=== PATIENT | male | born 1945 | race Caucasian/White ===

== ENCOUNTER 2017-11-15 09:08 | Outpatient (CLI) | payer OTHER ==
--- NOTE | 2017-11-15 12:49 | XRAY Report ---
DATE OF SERVICE: 11/15/2017 THREE-VIEW LEFT SHOULDER: 11/15/2017 CLINICAL INDICATION: Pain. FINDINGS: Internal and external rotational views and a scapular Y view of the left shoulder were obtained. There is moderate glenohumeral osteoarthritis. The humeral head appears high riding, suggestive of chronic rotator cuff tear. No acute fracture or dislocation is identified. No foreign body is seen in the soft tissues. IMPRESSION: MODERATE OSTEOARTHRITIS, WITH POSSIBLE CHRONIC ROTATOR CUFF TEAR. TD: 11/15/2017 12:49
== END 2017-11-15 09:09 | disposition home or self-care (01) ==
LOC: DI 09:08
PROVIDERS: ATTEND Family Medicine
DX: M19.012 Primary osteoarthritis, left shoulder (principal)

== ENCOUNTER 2017-12-08 13:15 | Outpatient (CLI) | payer OTHER ==
--- NOTE | 2017-12-08 21:08 | MRI Preliminary Report ---
Exam: MRI SHOULDER LT W/O IMPRESSION: 1. Mild supraspinatus tendinopathy with shallow partial-thickness articular surface tear. 2. Mild infraspinatus tendinopathy with subtle partial-thickness intrasubstance tear. 3. Mild subscapularis tendinopathy with focal deep partial thickness undersurface tear. 4. Moderate biceps tendinopathy with medial subluxation from the groove. 5. Degenerative fraying throughout the labrum with deep partial to full-thickness tear at the posteri or superior aspect. Tearing may extend deep and anterior to the biceps tendon anchor (SLAP tear) . 6. Moderate glenohumeral degenerative change. 7. Moderate acromioclavicular degenerative change. 8. Acromioclavicular osteophytes and lateral downsloping of the acromion may contribute to symptoms o f impingement. [facility] SE[facility] SITE ID: [id number]
--- NOTE | 2017-12-08 22:46 | MRI Report ---
EXAM: LEFT SHOULDER MRI WITHOUT CONTRAST EXAM DATE: 12/08/2017 02:20 PM. CLINICAL HISTORY: Chronic left shoulder pain, unspecified rotator cuff tear/rupture. COMPARISON: Radiographs 11/15/2017. TECHNIQUE: Multiplanar, multisequence T1-weighted and fluid-sensitive sequences of the shoulder witho ut contrast. Other: None. FINDINGS: Acromioclavicular Region: The acromion is type II with mild lateral downsloping. Moderate degenerativ e change at the joint with inferiorly-directed osteophytes resulting in mass-effect on the supraspina tus myotendinous junction. The coracoacromial and coracoclavicular ligaments are intact. Minimal suba cromial/subdeltoid bursal fluid. Glenohumeral Region: No subluxation. Small joint effusion. Diffuse deep partial to full-thickness car tilage loss. Moderate-sized osteophytes at the inferior glenoid and humeral head. The glenohumeral li gaments and joint capsule are unremarkable. Bone Marrow: No fracture, marrow edema or bone lesions. Labrum: Diffuse degenerative fraying of the labrum. Deep partial-thickness tear at the posterior-supe rior aspect. Subtle partial-thickness tearing may extend deep and anterior to the biceps tendon ancho r. Musculature/Rotator Cuff: Mild supraspinatus tendinopathy with shallow partial-thickness articular quintanilla rface tearing at the anterior and central fibers involving a region measuring 1.4 cm in transverse di mension. This involves less than 50% of the tendon thickness. Mild infraspinatus tendinopathy with a minimal partial-thickness intrasubstance tear at the posterior insertion. Teres minor tendon is intact. Mild subscapularis tendinopathy. Focal deep partial-thickness undersurface tear at the mid to superio r fibers. No edema or fatty atrophy. Biceps Tendon: Moderate thickening and hyperintense signal in the intra-articular portion. Medial sub luxation from the groove. Moderate to large amount of fluid in the tendon sheaths. Other: The subcutaneous tissues are unremarkable. IMPRESSION: 1. Mild supraspinatus tendinopathy with a shallow partial-thickness articular surface tear. 2. Mild infraspinatus tendinopathy with a subtle partial-thickness intrasubstance tear. 3. Mild subscapularis tendinopathy with a focal deep partial-thickness undersurface tear. 4. Moderate biceps tendinopathy with medial subluxation from the groove. 5. Degenerative fraying throughout the labrum with a deep partial to full-thickness tear at the poste rior superior aspect. Tearing may extend deep and anterior to the biceps tendon anchor (SLAP tear). 6. Moderate glenohumeral degenerative change. 7. Moderate acromioclavicular degenerative change. 8. Acromioclavicular osteophytes and lateral downsloping of the acromion may contribute to symptoms o f impingement. [facility] SE[facility] Referring Provider Line: [phone] SITE ID: [id number]
== END 2017-12-08 13:16 | disposition home or self-care (01) ==
LOC: DI 13:15
PROVIDERS: ATTEND Family Medicine
DX: M75.102 Unspecified rotator cuff tear or rupture of left shoulder, not specified as traumatic (principal); M19.012 Primary osteoarthritis, left shoulder; M25.712 Osteophyte, left shoulder; S43.492A Other sprain of left shoulder joint, initial encounter; M67.88 Other specified disorders of synovium and tendon, other site; M75.92 Shoulder lesion, unspecified, left shoulder

== ENCOUNTER 2018-01-28 09:02 | Outpatient (CLI) | payer OTHER ==
--- NOTE | 2018-01-28 10:54 | CT Report ---
CT CHEST FOR LUNG CANCER SCREENIN01/28/2018 CLINICAL INDICATION: A 72-year-old asymptomatic patient with [id number] history of smoking, current smoker for screening. TECHNIQUE: Axial CT images of the chest were obtained without intravenous contrast, using low dose screening technique. FINDINGS: The heart and great vessels demonstrate mild atherosclerotic calcification. No hilar or mediastinal lymphadenopathy is present. The lungs are clear. No effusion or pneumothorax is present. Osseous structures demonstrate degenerative changes. Limited evaluation of the upper abdominal structures demonstrates normal adrenal glands. IMPRESSION: NEGATIVE EXAMINATION. RECOMMENDATION: Continue routine annual screening with low dose chest CT in 12 months. LUNG RADS CATEGORY 1-NEGATIVE. CT DOSE REDUCTION STATEMENT In accordance with CT protocol optimization, one or more of the following dose reduction techniques were utilized for this exam: automated exposure control, adjustment of mA and/or KV based on patient size, or use of iterative reconstructive technique. TD: 01/28/2018 10:53
== END 2018-01-28 09:03 | disposition home or self-care (01) ==
LOC: DI 09:02
PROVIDERS: ATTEND Family Medicine
DX: Z12.2 Encounter for screening for malignant neoplasm of respiratory organs (principal); F17.210 Nicotine dependence, cigarettes, uncomplicated

== ENCOUNTER 2018-11-06 10:00 | Outpatient (CLI) | payer OTHER ==
--- NOTE | 2018-11-06 11:34 | XRAY Report ---
Reason: ESOPHAGEAL DYSPHAGIA Procedure Date: 11/06/2018 Accession Number: [id number] / [id number] Procedure: FL - Modified Barium Swallow W/SP CPT Code: FULL RESULT: EXAM: MODIFIED BARIUM SWALLOW EXAM DATE: 11/06/2018 11:03 AM. CLINICAL HISTORY: Esophageal dysphagia. COMPARISON: None. TECHNIQUE: Under the direction of speech pathology, patient swallowed various consistencies of barium under lateral fluoroscopic observation of the neck. Fluoroscopy Time: 0.35 minutes. Number of Images: 1. FINDINGS: Swallowing Mechanism: Normal oral phase and swallowing reflex. Airway Protection: Normal epiglottic motion. No episodes of tracheal penetration or aspiration with all consistencies of barium. Pharynx: Normal. No significant vallecular or piriform sinus contrast pooling. Other: None. IMPRESSION: Normal modified barium swallow. No aspiration identified. [facility]
== END 2018-11-06 10:01 | disposition home or self-care (01) ==
LOC: DI 10:00
PROVIDERS: ATTEND Internal Medicine
DX: R13.19 Other dysphagia (principal)
CPT/HCPCS: 74230

== ENCOUNTER 2019-01-24 13:17 | Outpatient (CLI) | payer OTHER ==
--- NOTE | 2019-01-24 15:20 | XRAY Report ---
Reason: GASTROESOPHAGEAL REFLUX DISEASE W/O ESOPHAGITIS Procedure Date: 01/24/2019 Accession Number: [id number] / [id number] Procedure: FL - Esophogram CPT Code: FULL RESULT: EXAM: BARIUM ESOPHAGRAM EXAM DATE: 01/24/2019 02:15 PM. CLINICAL HISTORY: Gastroesophageal reflux disease without esophagitis. COMPARISONS: MODIFIED SWALLOW 11/06/2018 11:03 AM. TECHNIQUE: Routine double contrast esophagram. Fluoroscopy Time: 2.1 minutes. Number of Images: 34. FINDINGS: Swallowing Mechanism: Normal. No tracheal aspiration or penetration. Esophageal Motility: Disorganized peristaltic stripping wave. Mucosa: Irregular distal mucosa, possibly at least in part due to diffuse esophageal spasm. Gastroesophageal Junction: No fixed stricture is identified. No reflux is identified. Other: Posterior along the cervical esophagus is an indentation with no osseous correlate identified and no definite diverticulum seen. IMPRESSION: Diffuse esophageal spasm and disorganized stripping wave. Given the irregular appearance of mucosa, reflux disease is possible but not demonstrated on today's exam. [facility]
== END 2019-01-24 13:18 | disposition home or self-care (01) ==
LOC: DI 13:17
PROVIDERS: ATTEND Internal Medicine
DX: K22.4 Dyskinesia of esophagus (principal)
CPT/HCPCS: 74220

== ENCOUNTER 2019-09-25 16:58 | Outpatient (CLI) | payer OTHER ==
--- NOTE | 2019-09-27 20:20 | Ultrasound Report ---
Reason: NOCTURIA Procedure Date: 09/25/2019 Accession Number: [id number] / [id number] Procedure: US - Bladder CPT Code: Final Report FULL RESULT: EXAM: PELVIS ULTRASOUND, LIMITED EXAM DATE: 09/25/2019 05:40 PM. CLINICAL HISTORY: NOCTURIA. COMPARISON: None. TECHNIQUE: Real-time scanning was performed with static images obtained. IMPRESSION: 1. Bladder is normal in contour and size, 293 cc prevoid. 2. Moderate postvoid residual, 142 cc. 3. Prostate gland upper normal in size, 36 cc. [facility]
== END 2019-09-25 16:59 | disposition home or self-care (01) ==
LOC: DI 16:58
PROVIDERS: ATTEND Internal Medicine
DX: R35.1 Nocturia (principal)
CPT/HCPCS: 76857

== ENCOUNTER 2019-11-06 10:47 | Outpatient (CLI) | payer OTHER ==
[2019-11-06 11:16] LABS: CREATININE 0.9 mg/dL (0.6-1.2)
[2019-11-06] MEDS ORDERED: IOVERSOL 320 100 ML VIAL IVP ONE ×2 (11:47→12:59)
[2019-11-06] MEDS ORDERED: IOVERSOL 320 50 ML VIAL ONE (11:47)
[2019-11-06] MEDS ORDERED: IOVERSOL 320 50 ML VIAL PO ONE (12:59)
--- NOTE | 2019-11-06 17:04 | CT Report ---
Reason: DYSPHAGIA,EGJ OUTFLOW OBSTRUCTION Procedure Date: 11/06/2019 Accession Number: [id number] / [id number] Procedure: CT - CHEST W CPT Code: Final Report FULL RESULT: EXAM: CT CHEST EXAM DATE: 11/06/2019 12:33 PM. CLINICAL HISTORY: DYSPHAGIA, EGJ OUTFLOW OBSTRUCTION. COMPARISONS: CHEST SCREEN LOW DOSE W/O 01/28/2018 9:33 AM. TECHNIQUE: Routine helical CT imaging was performed through the chest. IV contrast: None. Reconstructions: Coronal and sagittal. In accordance with CT protocol optimization, one or more of the following dose reduction techniques were utilized for this exam: automated exposure control, adjustment of mA and/or KV based on patient size, or use of iterative reconstructive technique. FINDINGS: Lungs/Pleura: Biapical scarring. No nodules, bronchial thickening, consolidation, or edema. Pulmonary vasculature is normal. No pericardial or pleural effusion. No pneumothorax. Mediastinum: Dilated contrast-filled esophagus down to the GE junction. Ascending aortic aneurysm 4.3 cm stable. 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 The heart and great vessels are normal. Bones: DJD spine, shoulders. Visualized Abdomen: Fatty infiltrated liver. Diverticulosis Other: None. IMPRESSION: 1. Dilated contrast filled esophagus down to the GE junction. 2. Ascending aortic aneurysm 4.3 cm 3. Fatty infiltrated liver [facility]
== END 2019-11-06 10:48 | disposition home or self-care (01) ==
LOC: LAB 10:47
PROVIDERS: ATTEND Nurse Practitioner Family
DX: R13.14 Dysphagia, pharyngoesophageal phase (principal); K22.4 Dyskinesia of esophagus; I71.2 Thoracic aortic aneurysm, without rupture; K76.0 Fatty (change of) liver, not elsewhere classified; N40.1 Benign prostatic hyperplasia with lower urinary tract symptoms
CPT/HCPCS: 36415; 71260; 82565; Q9967

== ENCOUNTER 2020-05-26 13:02 | Inpatient (IN) | payer MEDICARE, OTHER ==
[2020-05-26] MEDS ORDERED: HYDROmorphone 1 MG/ML CARPUJECT IM STA (14:44)
--- NOTE | 2020-05-26 14:45 | ED Physician Documentation ---
History of Present Illness - Stated complaint Stated Complaint: RT SIDE PX - Chief complaint Chief Complaint: Ext Problem - History obtained from History obtained from: Patient - History of Present Illness Timing: Prior to arrival - Additonal information Additional information: 74-year-old male presents to the emergency department for evaluation of right low back pain which he attributes to sciatica as well as right knee pain. He reports that 5 days ago he began to feel a sharp pain in his back that radiated down to below the knee. He has had similar in the past. He typically will take hydrocodone for back pain but it has not been effective. He denies saddle anesthesia bowel or bladder movements. However since then he has also began to develop right knee pain and swelling. He reports that he can no longer bear weight on the right knee and he is unable to allow passive flexion or extension of it. He did report to the nurse that he had been kneeling for a long period of time the other day but did not report that history to me. He denies any fevers but does state that he has been vomiting secondary to the pain. This gentleman may have seen his primary care provider who had ordered an outpatient diagnostic procedure of the knee but in conversation with the nurse and the patient it sounds like they were concerned that it would not be covered by therefore they came to the emergency department. pt does take vicodin daily Review of Systems Constitutional: denies: Fever, Chills Throat: denies: Dental pain / toothache, Oral lesions / sores Cardiac: denies: Chest pain / pressure, Palpitations Respiratory: denies: Dyspnea GI: reports: Vomiting. denies: Abdominal Pain, Abdominal Swelling, Nausea : denies: Dysuria, Frequency, Hesitancy, Hematuria Skin: denies: Rash, Lesions Musculoskeletal: reports: Back pain, Joint pain, Joint swelling Neurologic: denies: Generalized weakness, Focal weakness, Numbness PD PAST MEDICAL HISTORY - Past Medical History Past Medical History: Yes Musculoskeletal: Chronic back pain Derm: Other Other Past Medical History: melanoma - Past Surgical History Past Surgical History: Yes Ortho: Other - Allergies Allergies/Adverse Reactions: Allergies Allergy/AdvReac Type Severity Reaction Status Date / Time No Known Drug Allergies Allergy Verified 05/26/20 13:27 - Social History Does the pt smoke?: No Smoking Status: Never smoker Does the pt drink ETOH?: No Does the pt have substance abuse?: No - Immunizations Immunizations are current?: No - POLST Patient has POLST: No PD ED PE EXPANDED - General General: Alert, No acute distress, In Pain - Cardiac Cardiac: Regular Rate, Radial strong equal, Pedal strong equal, Cap refill < 2 sec - Respiratory Respiratory: Clear to ausultation neto. No: Distress, Labored - Abdomen Abdomen: Normal Bowel sounds. No: Tender to palpation - Back Back: Other ( Patient in a seated position. Tenderness in the right lower back near the SI joint. No midline tenderness appreciated. Patient does not allow himself to stand secondary to pain in the right knee. Therefore limited exam of the low back) - Extremities Extremities: Right knee (Right knee is generally swollen and feels warm to the touch. Patient will not flex or extend the knee. It remains at a 45 degree angle. He will not allow passive flexion or extension.) Results - Vitals Vitals: Vital Signs - 24 hr 05/26/20 05/26/20 13:23 16:11 Temperature 37.0 C Heart Rate 104 H 113 H Respiratory 22 18 Rate Blood Pressure 150/105 H 156/83 H O2 Saturation 98 96 Oxygen O2 Source Room air - Labs Labs: Laboratory Tests 05/26/20 05/26/20 05/26/20 14:45 14:55 14:55 WBC 16.5 H RBC 4.68 L Hgb 15.4 Hct 43.4 MCV 92.7 MCH 32.9 H MCHC 35.5 RDW 12.4 Plt Count 159 MPV 9.7 Neut # (Auto) 13.9 H Lymph # (Auto) 1.1 L [place] # (Auto) 1.3 H Eos # (Auto) 0.0 Baso # (Auto) 0.0 Absolute Nucleated RBC 0.00 Nucleated RBC % 0.0 ESR Sodium 134 L Potassium 3.9 Chloride 93 L Carbon Dioxide 26 Anion Gap 15.0 H BUN 19 Creatinine 1.0 Estimated GFR (MDRD) 73 L Glucose 156 H Calcium 9.0 Total Bilirubin 1.4 H AST 20 ALT 34 Alkaline Phosphatase 82 C-Reactive Protein 43.3 H Total Protein 8.1 Albumin 3.9 Globulin 4.2 Albumin/Globulin Ratio 0.9 L Lipase 20 L Urine Color YELLOW Urine Clarity CLEAR Urine pH 5.5 Ur Specific [place] >=1.030 H Urine Protein 100 H Urine Glucose (UA) NEGATIVE Urine Ketones 40 H Urine Occult Blood SMALL H Urine Nitrite NEGATIVE Urine Bilirubin NEGATIVE Urine Urobilinogen 1 (NORMAL) Ur Leukocyte Esterase NEGATIVE Urine RBC 0-5 Urine WBC 0-3 Ur Squamous Epith Cells NONE SEEN Urine Bacteria None Seen Urine Casts 0-2 Hyaline Casts Urine Mucus Moderate Strands Ur Microscopic Review INDICATED Urine Culture Comments NOT INDICATED 05/26/20 14:55 WBC RBC Hgb Hct MCV MCH MCHC RDW Plt Count MPV Neut # (Auto) Lymph # (Auto) [place] # (Auto) Eos # (Auto) Baso # (Auto) Absolute Nucleated RBC Nucleated RBC % ESR 12 Sodium Potassium Chloride Carbon Dioxide Anion Gap BUN Creatinine Estimated GFR (MDRD) Glucose Calcium Total Bilirubin AST ALT Alkaline Phosphatase C-Reactive Protein Total Protein Albumin Globulin Albumin/Globulin Ratio Lipase Urine Color Urine Clarity Urine pH Ur Specific [place] Urine Protein Urine Glucose (UA) Urine Ketones Urine Occult Blood Urine Nitrite Urine Bilirubin Urine Urobilinogen Ur Leukocyte Esterase Urine RBC Urine WBC Ur Squamous Epith Cells Urine Bacteria Urine Casts Urine Mucus Ur Microscopic Review Urine Culture Comments PD MEDICAL DECISION MAKING - ED course Complexity details: reviewed results, d/w patient, d/w family ED course: 74-year-old male presented to the emergency department with 5 days of right low back pain as well as now 4 days of right knee pain and swelling. Patient is unable to bear weight in the right knee. He has micromotion tenderness and allows very little exam of the knee. A CT scan was done and it does show tricompartmental arthritis as well as a mild to moderate knee effusion. CRP and is elevated at 43 as well as leukocytosis of 16,000. My concerns for this knee pain include a septic arthritis versus gout versus an exacerbation of longstanding or Roly's. In order to further differentiate the pain I have offered patient an opportunity for arthrocentesis. However he will not sign the consent for this provider to do the procedure. He insists on being pain-free before the procedure is done. In addition he is afraid that he will not tolerate the procedure. Given my concerns for infection I have asked construction assistant orthopedic Dr. Lucia to come in and evaluate the patient. In addition I have also ordered additional analgesia in the form of Dilaudid and oxycodone. 1744: Patient has been seen by Dr. Lucia. Arthrocentesis of the knee completed. At this time he recommends admitting the patient overnight to the hospitalist service with IV antibiotics. He would like medicine admission and he will continue to consult with plan for likely discharge home tomorrow if better. Departure - Departure Disposition: ED Place in Observation Clinical Impression: Knee effusion, right Right knee pain Qualifiers: Chronicity: acute Qualified Code(s): M25.561 - Pain in right knee
[2020-05-26 14:59] LABS: BASOPHILS % (AUTO) 0.2 %; EOSINOPHILS % (AUTO) 0.1 %; HGB - HEMOGLOBIN 15.4 g/dL (14.0-18.0); LYMPHOCYTES # (AUTO) 1.1 10^3/uL (1.5-3.5); LYMPHOCYTES % (AUTO) 6.7 %; MEAN CORPUSCULAR HEMOGLOBIN 32.9 pg (27.0-31.0); MEAN CORPUSCULAR HGB CONC 35.5 g/dL (32.0-36.0); MEAN CORPUSCULAR VOLUME 92.7 fL (80.0-94.0); MEAN PLATELET VOLUME 9.7 fL (7.4-11.4); MONOCYTES # (AUTO) 1.3 10^3/uL (0.0-1.0); MONOCYTES % (AUTO) 8.1 %; NEUTROPHILS # (AUTO) 13.9 10^3/uL (1.5-6.6); NEUTROPHILS % (AUTO) 84.2 %; PLT - PLATELET COUNT 159 10^3/uL (130-450); RED BLOOD COUNT 4.68 10^6/uL (4.70-6.10); RED CELL DISTRIBUTION WIDTH 12.4 % (12.0-15.0); WHITE BLOOD COUNT 16.5 x10^3/uL (4.8-10.8)
[2020-05-26 15:07] LABS: GLUCOSE, URINE (UA) NEGATIVE (NEGATIVE); KETONES,URINE (UA) 40 mg/dL (NEGATIVE); LEUKOCYTE ESTERASE, URINE NEGATIVE (NEGATIVE); NITRITE,URINE NEGATIVE (NEGATIVE); OCCULT BLOOD,URINE SMALL (NEGATIVE); PH,URINE 5.5 PH (5.0-7.5); PROTEIN,URINE 100 mg/dL (NEGATIVE); UROBILINOGEN,URINE 1 (NORMAL) E.U./dL (NORMAL)
[2020-05-26 15:17] LABS: BILIRUBIN,URINE NEGATIVE (NEGATIVE); CLARITY,URINE CLEAR (CLEAR); ICTOTEST,URINE NEGATIVE
[2020-05-26 15:25] LABS: BACTERIA,URINE None Seen /HPF (None Seen); RBC,URINE 0-5 /HPF (0-5); SQUAMOUS EPITHELIAL CELL,UR NONE SEEN (<= Few)
[2020-05-26 15:26] LABS: CASTS, URINE 0-2 Hyaline Casts /LPF; MUCUS,URINE Moderate Strands
[2020-05-26 15:34] LABS: ALBUMIN 3.9 g/dL (3.2-5.5); ALBUMIN/GLOBULIN RATIO 0.9 (1.0-2.2); BILIRUBIN,TOTAL 1.4 mg/dL (0.2-1.0); CRP - C-REACTIVE PROTEIN 43.3 mg/dL (0-1.0); TOTAL PROTEIN 8.1 g/dL (6.7-8.2)
[2020-05-26] MEDS ORDERED: SODIUM CHLORIDE 0.9% 1,000 ML IV STA (15:41)
--- NOTE | 2020-05-26 16:03 | CT Report ---
PROCEDURE: LOWER EXTREMITY WO - RT INDICATIONS: knee swelling and pain TECHNIQUE: Noncontrast 3 mm axial sections acquired of the right knee, with coronal and sagittal reformats. COMPARISON: None. FINDINGS: Image quality: Excellent. Bones: Examination of right knee shows moderate medial femoral tibial compartment joint space narrow ing and subchondral sclerosis with small marginal osteophyte formation. Mild osteoarthritic changes a re noted in lateral femoral tibial compartment and patellofemoral compartment. No fracture or disloca tion. No suspicious intraosseous lesion. Soft tissues: There is small to moderate amount of joint fluid, no calcified intra-articular loose b nish. Distal quadriceps tendon and patellar tendon are grossly intact. No gross full-thickness ACL or PCL rupture although evaluation is limited due to CT technique. There is suggestion of thickened the medial collateral ligament. IMPRESSION: 1. No acute right knee fracture or dislocation. Mild to moderate tricompartmental osteoarthritis most prominent in medial femoral tibial compartment. 2. Thickened medial collateral ligament suggestive of MCL sprain/partial thickness tear. No definite full-thickness ACL or PCL rupture. Evaluation is limited due to CT technique. 3. Small to moderate amount of joint effusion, no calcified intra-articular loose body. Reviewed by: Calvin Faith MD on 05/26/2020 3:02 PM TICO Approved by: Calvin Faiht MD on 05/26/2020 3:02 PM [id number] Station ID: [id number]
[2020-05-26] MEDS ORDERED: HYDROmorphone 1 MG/ML CARPUJECT IVP STA (16:20)
[2020-05-26] MEDS ORDERED: BUFFERED LIDOCAINE 10 ML SYRINGE SUBQ STA (16:20)
[2020-05-26] MEDS ORDERED: oxyCODONE 5 MG TABLET PO STA (16:42)
[2020-05-26] MEDS ORDERED: cefTRIAXone 2 GM in SODIUM CHLORIDE 0.9% MINIBAG 100 ML IV STA (17:47)
--- NOTE | 2020-05-26 18:02 | CONSULTATION NOTE ---
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 About48 hours ago he started having some pain in his right knee. He states that he has had a similar problem in the past. He denies any history of gout. He has some history of sciatic pain and arthritis in his right knee. He states that he had some chills but presently is not febrile. He now states that he is having significant pain in this knee and is unable to ambulate. An attempt was made to aspirate the knee however he refused and I was called to the emergency department to evaluate. He is amenable to an aspiration. 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 History - Past Medical History Musculoskeletal: reports: Chronic back pain Derm: reports: Other MRSA Hx?: No Other Past Medical History: melanoma - Past Surgical History Ortho: reports: Other - POLST Patient has POLST: No Meds/Allgy - Allergies Allergies/Adverse Reactions: Allergies Allergy/AdvReac Type Severity Reaction Status Date / Time No Known Drug Allergies Allergy Verified 05/26/20 13:27 Exam - Vital Signs Vital Signs: Vital Signs x48h Temp Pulse Resp BP Pulse Ox 05/26/20 16:11 113 H 18 156/83 H 96 05/26/20 13:23 37.0 C 104 H 22 150/105 H 98 - Physical Exam General Appearance: positive: No acute distress. negative: Other (He does not appear in any acute distress nor particularly septic) Eyes Bilateral: positive: PERRL ENT: positive: ENT inspection nml Respiratory: positive: Chest non-tender, No respiratory distress, Breath sounds nml Cardiovascular: positive: Regular rate & rhythm Peripheral Pulses: negative: 2+ Abdomen: positive: Non-tender (Right lower extremity) Skin: negative: Warm (No diaphoresis. His right knee is slightly warm.) Extremities: positive: Joint swelling, Other Neurologic/Psychiatric: positive: Oriented x3, Motor nml, Sensation nml, Mood/af fect nml Conclusion/Plan - Diagnosis Diagnosis: Rule out sepsis right knee. Early diagnosis. - Plan Plan: Under sterile conditions I used ethyl chloride to anesthetize the skin and used 10 cc of 1% Xylocaine with a 27-gauge needle to anesthetize the capsule and subcutaneous tissue. After letting thisSet up I then used an 18-gauge needle and aspirated 20 cc ofMucinous yellow fluid which was not turbid But did appear to have some cellular Contents.He felt immediately better after the aspiration. The aspirate was sent for cell culture aerobic anaerobic Gram stain glucose cell count. He will be started on IV Rocephin tonight. He will have a clinical check in the morning and if improved can be discharged on p.o. antibiotics per laboratory/ culture results.I would suspect that he will do well without having an arthroscopic irrigation and debridement however I did discuss this with him todayAnd he understands that ifHe does not respond to initial IV antibioticsNegation and debridement will be carried out arthroscopically. - Lab Results Fish Bones: 05/26/20 14:55 05/26/20 14:55
[2020-05-26] MEDS ORDERED: SODIUM CHLORIDE FLUSH 0.9% 10 ML SYRINGE IVP PRN (18:18)
[2020-05-26 19:10] LABS: BF CLARITY HAZY; BF COLOR YELLOW; BF SOURCE SYNOVIAL; CC,BF RBC 9000 /mm^3
--- NOTE | 2020-05-26 19:21 | HISTORY & PHYSICAL EXAMINATION ---
Chief Complaint - Chief Complaint Chief Complaint: left knee swelling and pain History of Present Illness - Admitted From Admitted From:: [facility] ED - History Obtained From Records Reviewed: yes History obtained from: patient - History of Present Illness HPI Comment/Other: Patient is a 74-year-old male with history of sciatica and chronic back pain who presented to the ED with complaint of right knee swelling and pain. Symptoms started on Sunday night which was 4 days ago. It got worse Sunday morning and 3 days later it was even more swollen. He went to see his PCP and images were ordered. However because of worsening pain he decided to go to the emergency room. The knee joint was swollen and warm to touch. He denied any recent injury or puncture to the knee. He had been painting in the garage on his knees 4 days ago prior to the onset of his symptoms. He denied any fever but reported night sweats for the past 3 days. Upon arrival to the med/surg unit he was found to have a fever with a temp of 39.2 degree Celsius. He reported previous occurrences of similar episodes twice in the past. He was seen by orthopedics in the ED and had an aspiration of the knee joint done. He was started on Rocephin 2 g IV every 24 hours. He denied chest pain, dyspnea or abdominal pain but reported nausea and vomiting. History - Past Medical History Musculoskeletal: reports: Chronic back pain, Other (Sciatica, Arthritis) Derm: reports: Other MRSA Hx?: No Other Past Medical History: melanoma - Past Surgical History Ortho: reports: Other (bilateral wrist surgery due to an injury while riding a horse) - Family & Social History Family History: Mother: Diabetes, Type 2 Family History Comment/Other: father had gout. He at age 89 Living arrangement: At home Living Situation: With spouse/s.o. Social History Notes: He does not smoke tobacco products or use illicit drugs. He drinks socially. He lives at home with his spouse. 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 - POLST Patient has POLST: No POLST Status: Full Code Meds/Allgy - Allergies Allergies/Adverse Reactions: Allergies Allergy/AdvReac Type Severity Reaction Status Date / Time No Known Drug Allergies Allergy Verified 05/26/20 13:27 Review of Systems - Constitutional Constitutional: reports: Fever, Night sweats - Eyes Eyes: denies: Pain - Ears, Nose & Throat Ears, Nose & Throat: denies: Ear pain - Cardiovascular Cariovascular: denies: Palpitations, Chest pain - Respiratory Respiratory: denies: Cough, Wheezing, SOB at rest, SOB with exertion - Gastrointestinal Gastrointestinal: reports: Nausea, Vomiting, Reflux/heartburn. denies: Abdominal pain, Abdominal distention, Constipation - Genitourinary Genitourinary: denies: Dysuria, Frequency, Urgency, Hematuria - Musculoskeletal Musculoskeletal: reports: Joint pain (right knee), Joint swelling (right knee) - Integumentary Integumentary: reports: Other (knee joint swollen and warm to touch). denies: Rash, Pruritis, Lesions - Neurological Neurological: denies: General weakness, Headache - Psychiatric Psychiatric: denies: Depression, Anxiety - Endocrine Endocrine: denies: Polyuria, Polydypsia - Hematologic/Lymphatic Hematologic/Lymphatic: denies: Anemia, Bruising, Petechiae Prior Level of Functionality: Patient is independent of activities of daily living Exam - Vital Signs Vital Signs: Vital Signs x48h Temp Pulse Resp BP Pulse Ox 05/26/20 16:11 113 H 18 156/83 H 96 05/26/20 13:23 37.0 C 104 H 22 150/105 H 98 - Physical Exam General Appearance: positive: Alert, Moderate distress Eyes Bilateral: positive: PERRL, EOMI ENT: positive: No signs of dehydration Neck: positive: No JVD, Trachea midline Respiratory: positive: Chest non-tender, No respiratory distress, Breath sounds nml. negative: Wheezes, Rales, Rhonchi Cardiovascular: positive: Regular rate & rhythm Abdomen: positive: Non-tender, Nml bowel sounds, No distention Skin: positive: Color nml, No rash, Warm (right knee warm to touch) Extremities: positive: Joint swelling (right knee) Neurologic/Psychiatric: positive: Oriented x3, Mood/affect nml Conclusion/Plan - Problem List (1) Right knee pain Conclusion/Plan: Etiology not yet determined Differential includes gout versus pseudogout versus septic joint. Knee joint was aspirated. Analysis pending. CRP was 43 Patient was given 2 g of Rocephin IV in the ED. We will continue managing pain with Tylenol, oxycodone and all Dilaudid. Toradol 30 mg IV x1 given. Orthopedics following patient. Patient currently n.p.o. in the event that washout is planned tomorrow. Qualifiers: Chronicity: acute Qualified Code(s): M25.561 - Pain in right knee - Lab Results Fish Bones: 05/26/20 14:55 05/26/20 14:55 Core Measures - Anticipated LOS I expect patient to be DC'd or transferred within 96 hours.: Yes - DVT/VTE - Prophylaxis VTE/DVT Device ordered at admit?: Yes
[2020-05-26] MEDS: oxyCODONE 5 MG TABLET PO PRN (20:18)
[2020-05-26] MEDS: ACETAMINOPHEN 325 MG TABLET PO PRN (20:58)
[2020-05-26] MEDS ORDERED: KETOROLAC 30 MG/ML VIAL IVP STA (21:00)
[2020-05-26] MEDS: HYDROmorphone 0.5 MG/0.5 ML SYRINGE IVP PRN ×2 (21:00→23:39)
[2020-05-26] MEDS: SODIUM CHLORIDE 0.9% 1,000 ML IV SCH (21:03)
[2020-05-26] MEDS: SODIUM CHLORIDE FLUSH 0.9% 10 ML SYRINGE IVP SCH (23:39)
[2020-05-27] MEDS: oxyCODONE 5 MG TABLET PO PRN ×5 (01:43→21:23)
[2020-05-27] MEDS: HYDROmorphone 0.5 MG/0.5 ML SYRINGE IVP PRN ×5 (03:53→19:29)
[2020-05-27] MEDS: ACETAMINOPHEN 325 MG TABLET PO PRN ×4 (03:56→21:19)
[2020-05-27 05:32] LABS: BASOPHILS % (AUTO) 0.2 %; EOSINOPHILS % (AUTO) 1.1 %; HGB - HEMOGLOBIN 13.2 g/dL (14.0-18.0); MEAN CORPUSCULAR HEMOGLOBIN 32.5 pg (27.0-31.0); MEAN CORPUSCULAR HGB CONC 34.5 g/dL (32.0-36.0); MEAN CORPUSCULAR VOLUME 94.3 fL (80.0-94.0); MEAN PLATELET VOLUME 10.2 fL (7.4-11.4); MONOCYTES % (AUTO) 8.7 %; NEUTROPHILS % (AUTO) 80.9 %; PLT - PLATELET COUNT 151 10^3/uL (130-450); RED BLOOD COUNT 4.06 10^6/uL (4.70-6.10); RED CELL DISTRIBUTION WIDTH 12.5 % (12.0-15.0); WHITE BLOOD COUNT 13.2 x10^3/uL (4.8-10.8)
[2020-05-27 05:42] LABS: CREATININE 0.9 mg/dL (0.6-1.2)
[2020-05-27 05:46] LABS: ABNORMAL LYMPHS % (MANUAL) 0 %
[2020-05-27] MEDS: SODIUM CHLORIDE 0.9% 1,000 ML IV SCH ×3 (05:49→19:34)
[2020-05-27 06:16] LABS: BAND NEUTROPHILS % (MANUAL) 14 %; DIFFERENTIAL COMMENT MANUAL DIFFERENTIAL; LYMPHOCYTES # (MANUAL) 0.9 10^3/uL (1.5-3.5); LYMPHOCYTES % (MANUAL) 7 %; MONOCYTES # (MANUAL) 0.4 10^3/uL (0.0-1.0); PLATELET ESTIMATE, MANUAL NORMAL (130-450,000) (NORMAL); RBC MORPHOLOGY (MULTIPLE) NORMAL APPEARANCE (NORMAL)
[2020-05-27 06:19] LABS: CALCIUM 8.4 mg/dL (8.5-10.3)
[2020-05-27] MEDS: polyethylene glycoL 3350 17 GM PACKET PO SCH (08:19)
--- NOTE | 2020-05-27 11:00 | PROVIDER PROGRESS NOTE ---
Subjective - Prog Note Date Prog Note Date: 05/27/20 Prog Note Time: 10:58 - Subjective Pt reports feeling: No change (He continues to have issues with pain management despite the fact knee looks much better today) Objective - Vital Signs/Intake & Output Vital Signs: Vital Signs x48h Temp Pulse Pulse Resp BP Pulse Ox 05/27/20 08:00 36.7 C 90 26 H 141/82 H 96 05/27/20 04:53 37.6 C H 109 H 24 93 05/27/20 04:45 37.6 C H 05/27/20 03:58 39.2 C H 109 H 24 145/77 H 93 Intake & Output: Intake & Output 05/24/20 05/25/20 05/26/20 05/27/20 23:59 23:59 23:59 23:59 Intake Total 1661.85 778.817 Output Total 400 550 Balance 1261.85 228.817 - Objective General Appearance: positive: Alert Eyes Bilateral: positive: Conjunctivae nml ENT: positive: No signs of dehydration Neck: positive: Nml inspection Skin: positive: No rash Extremities: positive: Other (His right knee continues to be warm with minimal effusion. ROM guarded 30-60 degrees. No distal swelling, streaking, redness or inguinal nodes on right. No other signs of any joint sepsis potential.) Neurologic/Psychiatric: positive: Mood/affect nml - Lab Results Fish Bones: 05/27/20 04:50 05/27/20 04:50 Other Labs: Lab Results x24hrs 05/27/20 05/27/20 05/26/20 Range/Units 04:50 04:50 17:40 WBC 13.2 H (4.8-10.8) x10^3/uL RBC 4.06 L (4.70-6.10) 10^6/uL Hgb 13.2 L (14.0-18.0) g/dL Hct 38.3 L (42.0-52.0) % MCV 94.3 H (80.0-94.0) fL MCH 32.5 H (27.0-31.0) pg MCHC 34.5 (32.0-36.0) g/dL RDW 12.5 (12.0-15.0) % Plt Count 151 (130-450) 10^3/uL MPV 10.2 (7.4-11.4) fL Neut # (Auto) Not Reportable (1.5-6.6) 10^3/uL Lymph # (Auto) Not Reportable (1.5-3.5) 10^3/uL [place] # (Auto) Not Reportable (0.0-1.0) 10^3/uL Eos # (Auto) Not Reportable (0.0-0.7) 10^3/uL Baso # (Auto) Not Reportable (0.0-0.1) 10^3/uL Absolute Nucleated RBC Not Reportable x10^3/uL Total Counted 100 Band Neuts % (Manual) 14 H (0 - 10) % Abnorm Lymph % (Manual) 0 % Nucleated RBC % Not Reportable /100WBC Neutrophils # (Manual) 11.9 H (1.5-6.6) 10^3/uL Lymphocytes # (Manual) 0.9 L (1.5-3.5) 10^3/uL Monocytes # (Manual) 0.4 (0.0-1.0) 10^3/uL Eosinophils # (Manual) 0.0 (0-0.7) 10^3/uL Basophils # (Manual) 0.0 (0-0.1) 10^3/uL Differential Comment MANUAL DIFFERENTIAL Platelet Estimate NORMAL (130-450,000) (NORMAL) RBC Morph Micro Appear NORMAL APPEARANCE (NORMAL) ESR (0-20) mm/Hr Sodium 134 L (135-145) mmol/L Potassium 3.5 (3.5-5.0) mmol/L Chloride 100 L (101-111) mmol/L Carbon Dioxide 24 (21-32) mmol/L Anion Gap 10.0 (6-13) BUN 16 (6-20) mg/dL Creatinine 0.9 (0.6-1.2) mg/dL Estimated GFR (MDRD) 83 L (>89) Glucose 153 H (70-100) mg/dL Calcium 8.4 L (8.5-10.3) mg/dL Total Bilirubin (0.2-1.0) mg/dL AST (10-42) IU/L ALT (10-60) IU/L Alkaline Phosphatase (42-121) IU/L C-Reactive Protein (0-1.0) mg/dL Total Protein (6.7-8.2) g/dL Albumin (3.2-5.5) g/dL Globulin (2.1-4.2) g/dL Albumin/Globulin Ratio (1.0-2.2) Lipase (22-51) U/L Urine Color Urine Clarity (CLEAR) Urine pH (5.0-7.5) PH Ur Specific [place] (1.002-1.030) Urine Protein (NEGATIVE) mg/dL Urine Glucose (UA) (NEGATIVE) mg/dL Urine Ketones (NEGATIVE) mg/dL Urine Occult Blood (NEGATIVE) Urine Nitrite (NEGATIVE) Urine Bilirubin (NEGATIVE) Urine Urobilinogen (NORMAL) E.U./dL Ur Leukocyte Esterase (NEGATIVE) Urine RBC (0-5) /HPF Urine WBC (0-3) /HPF Ur Squamous Epith Cells (<= Few) Urine Bacteria (None Seen) /HPF Urine Casts /LPF Urine Mucus Ur Microscopic Review Urine Culture Comments Fluid Source Fluid Color Fluid Clarity Fluid WBC /mm^3 Fluid RBC /mm^3 Fluid Neutrophils % % Fluid Lymphocytes % % Fld Mesothelial Cell % Fluid Crystals NONE SEEN (N) 05/26/20 05/26/20 05/26/20 Range/Units 17:40 14:55 14:55 WBC (4.8-10.8) x10^3/uL RBC (4.70-6.10) 10^6/uL Hgb (14.0-18.0) g/dL Hct (42.0-52.0) % MCV (80.0-94.0) fL MCH (27.0-31.0) pg MCHC (32.0-36.0) g/dL RDW (12.0-15.0) % Plt Count (130-450) 10^3/uL MPV (7.4-11.4) fL Neut # (Auto) (1.5-6.6) 10^3/uL Lymph # (Auto) (1.5-3.5) 10^3/uL [place] # (Auto) (0.0-1.0) 10^3/uL Eos # (Auto) (0.0-0.7) 10^3/uL Baso # (Auto) (0.0-0.1) 10^3/uL Absolute Nucleated RBC x10^3/uL Total Counted Band Neuts % (Manual) (0 - 10) % Abnorm Lymph % (Manual) % Nucleated RBC % /100WBC Neutrophils # (Manual) (1.5-6.6) 10^3/uL Lymphocytes # (Manual) (1.5-3.5) 10^3/uL Monocytes # (Manual) (0.0-1.0) 10^3/uL Eosinophils # (Manual) (0-0.7) 10^3/uL Basophils # (Manual) (0-0.1) 10^3/uL Differential Comment Platelet Estimate (NORMAL) RBC Morph Micro Appear (NORMAL) ESR 12 (0-20) mm/Hr Sodium 134 L (135-145) mmol/L Potassium 3.9 (3.5-5.0) mmol/L Chloride 93 L (101-111) mmol/L Carbon Dioxide 26 (21-32) mmol/L Anion Gap 15.0 H (6-13) BUN 19 (6-20) mg/dL Creatinine 1.0 (0.6-1.2) mg/dL Estimated GFR (MDRD) 73 L (>89) Glucose 156 H (70-100) mg/dL Calcium 9.0 (8.5-10.3) mg/dL Total Bilirubin 1.4 H (0.2-1.0) mg/dL AST 20 (10-42) IU/L ALT 34 (10-60) IU/L Alkaline Phosphatase 82 (42-121) IU/L C-Reactive Protein 43.3 H (0-1.0) mg/dL Total Protein 8.1 (6.7-8.2) g/dL Albumin 3.9 (3.2-5.5) g/dL Globulin 4.2 (2.1-4.2) g/dL Albumin/Globulin Ratio 0.9 L (1.0-2.2) Lipase 20 L (22-51) U/L Urine Color Urine Clarity (CLEAR) Urine pH (5.0-7.5) PH Ur Specific [place] (1.002-1.030) Urine Protein (NEGATIVE) mg/dL Urine Glucose (UA) (NEGATIVE) mg/dL Urine Ketones (NEGATIVE) mg/dL Urine Occult Blood (NEGATIVE) Urine Nitrite (NEGATIVE) Urine Bilirubin (NEGATIVE) Urine Urobilinogen (NORMAL) E.U./dL Ur Leukocyte Esterase (NEGATIVE) Urine RBC (0-5) /HPF Urine WBC (0-3) /HPF Ur Squamous Epith Cells (<= Few) Urine Bacteria (None Seen) /HPF Urine Casts /LPF Urine Mucus Ur Microscopic Review Urine Culture Comments Fluid Source SYNOVIAL Fluid Color YELLOW Fluid Clarity HAZY Fluid WBC 29512 /mm^3 Fluid RBC 9000 /mm^3 Fluid Neutrophils % 99.0 % Fluid Lymphocytes % 1.0 % Fld Mesothelial Cell % Not Reportable Fluid Crystals (N) 05/26/20 05/26/20 Range/Units 14:55 14:45 WBC 16.5 H (4.8-10.8) x10^3/uL RBC 4.68 L (4.70-6.10) 10^6/uL Hgb 15.4 (14.0-18.0) g/dL Hct 43.4 (42.0-52.0) % MCV 92.7 (80.0-94.0) fL MCH 32.9 H (27.0-31.0) pg MCHC 35.5 (32.0-36.0) g/dL RDW 12.4 (12.0-15.0) % Plt Count 159 (130-450) 10^3/uL MPV 9.7 (7.4-11.4) fL Neut # (Auto) 13.9 H (1.5-6.6) 10^3/uL Lymph # (Auto) 1.1 L (1.5-3.5) 10^3/uL [place] # (Auto) 1.3 H (0.0-1.0) 10^3/uL Eos # (Auto) 0.0 (0.0-0.7) 10^3/uL Baso # (Auto) 0.0 (0.0-0.1) 10^3/uL Absolute Nucleated RBC 0.00 x10^3/uL Total Counted Band Neuts % (Manual) (0 - 10) % Abnorm Lymph % (Manual) % Nucleated RBC % 0.0 /100WBC Neutrophils # (Manual) (1.5-6.6) 10^3/uL Lymphocytes # (Manual) (1.5-3.5) 10^3/uL Monocytes # (Manual) (0.0-1.0) 10^3/uL Eosinophils # (Manual) (0-0.7) 10^3/uL Basophils # (Manual) (0-0.1) 10^3/uL Differential Comment Platelet Estimate (NORMAL) RBC Morph Micro Appear (NORMAL) ESR (0-20) mm/Hr Sodium (135-145) mmol/L Potassium (3.5-5.0) mmol/L Chloride (101-111) mmol/L Carbon Dioxide (21-32) mmol/L Anion Gap (6-13) BUN (6-20) mg/dL Creatinine (0.6-1.2) mg/dL Estimated GFR (MDRD) (>89) Glucose (70-100) mg/dL Calcium (8.5-10.3) mg/dL Total Bilirubin (0.2-1.0) mg/dL AST (10-42) IU/L ALT (10-60) IU/L Alkaline Phosphatase (42-121) IU/L C-Reactive Protein (0-1.0) mg/dL Total Protein (6.7-8.2) g/dL Albumin (3.2-5.5) g/dL Globulin (2.1-4.2) g/dL Albumin/Globulin Ratio (1.0-2.2) Lipase (22-51) U/L Urine Color YELLOW Urine Clarity CLEAR (CLEAR) Urine pH 5.5 (5.0-7.5) PH Ur Specific [place] >=1.030 H (1.002-1.030) Urine Protein 100 H (NEGATIVE) mg/dL Urine Glucose (UA) NEGATIVE (NEGATIVE) mg/dL Urine Ketones 40 H (NEGATIVE) mg/dL Urine Occult Blood SMALL H (NEGATIVE) Urine Nitrite NEGATIVE (NEGATIVE) Urine Bilirubin NEGATIVE (NEGATIVE) Urine Urobilinogen 1 (NORMAL) (NORMAL) E.U./dL Ur Leukocyte Esterase NEGATIVE (NEGATIVE) Urine RBC 0-5 (0-5) /HPF Urine WBC 0-3 (0-3) /HPF Ur Squamous Epith Cells NONE SEEN (<= Few) Urine Bacteria None Seen (None Seen) /HPF Urine Casts 0-2 Hyaline Casts /LPF Urine Mucus Moderate Strands Ur Microscopic Review INDICATED Urine Culture Comments NOT INDICATED Fluid Source Fluid Color Fluid Clarity Fluid WBC /mm^3 Fluid RBC /mm^3 Fluid Neutrophils % % Fluid Lymphocytes % % Fld Mesothelial Cell % Fluid Crystals (N) Sepsis Event Note (H) - Evaluation Possible source of Sepsis: positive: Bone/Joint - Sepsis Criteria Sepsis Criteria: Recorded Temperature greater than 38.3C or Less than 36C, WBC count greater than 10% bands Assessment/Plan - Problem List (1) Knee effusion, right Impression: Presently he appears slightly better after one dose of Rocephin. WBC count decreased. Gram stain of knee aspirate no organisms and wbc 10,000. Cultures pending. Due to pain intolerance would like to see how 24 hours of IV antibiotics effects CRP and clinical picture. With minimal effusion today doubt that washout arthroscopically will make much difference in overal clinical course but will make NPO with potential washout tomorrow. Discussed in detail with patient and he consents to possible surgery tomorrow if not clinically better.
[2020-05-27] MEDS: cefTRIAXone 2 GM in SODIUM CHLORIDE 0.9% MINIBAG 100 ML IV SCH (11:33)
--- NOTE | 2020-05-27 11:35 | PHARMACY PROGRESS NOTE ---
- Best Possible Medication History Admit Date and Time: 05/26/201817 Processed by: Pharmacy Medication History completed: Yes Patient Interview: Completed Secondary Source(s): Pharmacy records (PATIENT INTERVIEWED BY RAYO CROOKS. PATIENT CONFIRMS HE TAKES NORCO AT HOME REGULARLY. UNABLE TO REACH OR FOR COMPLETE LIST ), Insurance records As the person ultimately responsible for medication therapy, providers are able to order a medication from an existing home medication list in [facility] via the "Reconcile Routine" prior to Confirmation of that medication by office support. Such practice is discouraged except when the physician, in their clinical judgment, deems that a medical need exists for a medication without regard to previous use.
[2020-05-27] MEDS: SODIUM CHLORIDE FLUSH 0.9% 10 ML SYRINGE IVP SCH ×2 (14:42→17:22)
--- NOTE | 2020-05-27 15:43 | PROVIDER PROGRESS NOTE ---
Subjective - Prog Note Date Prog Note Date: 05/27/20 Prog Note Time: 15:41 (seen earlier today) - Subjective Subjective: the knee briefly felt better right after tap, but still painful 5pm; I dont hurt right now, but I'm afraid to move Patient reports he forgot to tell hospitalist on H/P that he has a swallowing issue, had EGD ~ 1 yr ago, and ? manometry. They thought he might have a strictures. He denies eosinophil esophagitis or [place] diverticulum . Sometimes "even milk gets stuck" and it all just comes out." Is supposed to have follow up. Never aspoirated , no pneumonia hx, no weight loss Current Medications - Current Medications Current Medications: Active Medications Generic Name Dose Route Start Last Admin Trade Name Freq PRN Reason Stop Dose Admin Acetaminophen 650 mg 05/26/20 20:35 05/27/20 15:02 Tylenol PO 650 mg Q6HR PRN Administration Pain or Fever > 38C (100.4F) Hydromorphone HCl 0.5 mg 05/26/20 20:34 05/27/20 15:02 Dilaudid Inj Syringe IVP 0.5 mg Q2H PRN Administration PAIN Sodium Chloride 1,000 mls @ 83 mls/hr 05/26/20 19:00 05/27/20 08:23 Normal Saline 0.9% IV 83 mls/hr .Q12H3M JUSTIN Administration Ceftriaxone Sodium 2 gm/ 100 mls @ 200 mls/hr 05/27/20 11:30 05/27/20 12:03 Sodium Chloride IV Infused Q24H JUSTIN Infusion Oxycodone HCl 5 mg 05/26/20 18:29 05/27/20 17:18 Roxicodone PO 5 mg Q4H PRN Administration PAIN Polyethylene Glycol 17 gm 05/27/20 09:00 05/27/20 08:19 Miralax PO 17 gm DAILY JUSTIN Administration Sodium Chloride 10 ml 05/26/20 18:18 Normal Saline Flush 0.9% IVP PRN PRN NEEDED PER PROVIDER ORDERS Sodium Chloride 10 ml 05/27/20 01:00 05/27/20 17:22 Normal Saline Flush 0.9% IVP Not Given 0100,0900,1700 JUSTIN HYDROcod/ACETAM 5/325 [Dent 5/325] 2 tab PO Q4HR 05/27/20 Objective - Vital Signs/Intake & Output Reviewed Vital Signs: Yes Vital Signs: Vital Signs x48h Temp Pulse Resp BP Pulse Ox 05/27/20 08:00 36.7 C 90 26 H 141/82 H 96 Intake & Output: Intake & Output 05/24/20 05/25/20 05/26/20 05/27/20 23:59 23:59 23:59 23:59 Intake Total 1661.85 1078.817 Output Total 400 1800 Balance 1261.85 -721.183 - Objective General Appearance: positive: No acute distress, Other (Pleasant alert, awake responsive, normal affect, looks comfortable,) Eyes Bilateral: positive: Normal inspection, EOMI Respiratory: positive: Chest non-tender, No respiratory distress, Breath sounds nml Cardiovascular: positive: Regular rate & rhythm, No murmur Abdomen: positive: Nml bowel sounds, No distention. negative: Tenderness Skin: positive: Warm, Dry Extremities: positive: Other (Right knee betadine stained, no ecchymosis, modest generalized swelling, warm to touch). negative: Pedal edema Neurologic/Psychiatric: positive: Oriented x3, Mood/affect nml - Lab Results Fish Bones: 05/27/20 04:50 05/27/20 04:50 Other Labs: Lab Results x24hrs 05/27/20 05/27/20 05/27/20 Range/Units 04:50 04:50 04:50 WBC 13.2 H (4.8-10.8) x10^3/uL RBC 4.06 L (4.70-6.10) 10^6/uL Hgb 13.2 L (14.0-18.0) g/dL Hct 38.3 L (42.0-52.0) % MCV 94.3 H (80.0-94.0) fL MCH 32.5 H (27.0-31.0) pg MCHC 34.5 (32.0-36.0) g/dL RDW 12.5 (12.0-15.0) % Plt Count 151 (130-450) 10^3/uL MPV 10.2 (7.4-11.4) fL Neut # (Auto) Not Reportable Lymph # (Auto) Not Reportable [place] # (Auto) Not Reportable Eos # (Auto) Not Reportable Baso # (Auto) Not Reportable Absolute Nucleated RBC Not Reportable Total Counted 100 Band Neuts % (Manual) 14 H (0 - 10) % Abnorm Lymph % (Manual) 0 % Nucleated RBC % Not Reportable Neutrophils # (Manual) 11.9 H (1.5-6.6) 10^3/uL Lymphocytes # (Manual) 0.9 L (1.5-3.5) 10^3/uL Monocytes # (Manual) 0.4 (0.0-1.0) 10^3/uL Eosinophils # (Manual) 0.0 (0-0.7) 10^3/uL Basophils # (Manual) 0.0 (0-0.1) 10^3/uL Differential Comment MANUAL DIFFERENTIAL Platelet Estimate NORMAL (130-450,000) (NORMAL) RBC Morph Micro Appear NORMAL APPEARANCE (NORMAL) ESR (0-20) mm/Hr Sodium 134 L (135-145) mmol/L Potassium 3.5 (3.5-5.0) mmol/L Chloride 100 L (101-111) mmol/L Carbon Dioxide 24 (21-32) mmol/L Anion Gap 10.0 (6-13) BUN 16 (6-20) mg/dL Creatinine 0.9 (0.6-1.2) mg/dL Estimated GFR (MDRD) 83 L (>89) Glucose 153 H (70-100) mg/dL Calcium 8.4 L (8.5-10.3) mg/dL C-Reactive Protein 38.5 H (0-1.0) mg/dL Fluid Source Fluid Color Fluid Clarity Fluid WBC /mm^3 Fluid RBC /mm^3 Fluid Neutrophils % % Fluid Lymphocytes % % Fld Mesothelial Cell % Fluid Crystals (N) 05/26/20 05/26/20 05/26/20 Range/Units 17:40 17:40 14:55 WBC (4.8-10.8) x10^3/uL RBC (4.70-6.10) 10^6/uL Hgb (14.0-18.0) g/dL Hct (42.0-52.0) % MCV (80.0-94.0) fL MCH (27.0-31.0) pg MCHC (32.0-36.0) g/dL RDW (12.0-15.0) % Plt Count (130-450) 10^3/uL MPV (7.4-11.4) fL Neut # (Auto) Lymph # (Auto) [place] # (Auto) Eos # (Auto) Baso # (Auto) Absolute Nucleated RBC Total Counted Band Neuts % (Manual) (0 - 10) % Abnorm Lymph % (Manual) % Nucleated RBC % Neutrophils # (Manual) (1.5-6.6) 10^3/uL Lymphocytes # (Manual) (1.5-3.5) 10^3/uL Monocytes # (Manual) (0.0-1.0) 10^3/uL Eosinophils # (Manual) (0-0.7) 10^3/uL Basophils # (Manual) (0-0.1) 10^3/uL Differential Comment Platelet Estimate (NORMAL) RBC Morph Micro Appear (NORMAL) ESR 12 (0-20) mm/Hr Sodium (135-145) mmol/L Potassium (3.5-5.0) mmol/L Chloride (101-111) mmol/L Carbon Dioxide (21-32) mmol/L Anion Gap (6-13) BUN (6-20) mg/dL Creatinine (0.6-1.2) mg/dL Estimated GFR (MDRD) (>89) Glucose (70-100) mg/dL Calcium (8.5-10.3) mg/dL C-Reactive Protein (0-1.0) mg/dL Fluid Source SYNOVIAL Fluid Color YELLOW Fluid Clarity HAZY Fluid WBC 89202 /mm^3 Fluid RBC 9000 /mm^3 Fluid Neutrophils % 99.0 % Fluid Lymphocytes % 1.0 % Fld Mesothelial Cell % Not Reportable Fluid Crystals NONE SEEN (N) Sepsis Event Note (H) - Evaluation Possible source of Sepsis: positive: Bone/Joint - Sepsis Criteria Sepsis Criteria: Recorded Temperature greater than 38.3C or Less than 36C, WBC count greater than 10% bands Assessment/Plan - Problem List (1) Right knee pain Impression: (1) Right knee pain Conclusion/Plan: Primary management by Orthopedic surgery Intial joint aspirate with ~ 11K WBC, nonturbid, Gram stain no organisms, Leukocytosis slightly improved Cultures still pending Objectively , per orthopedic surgeon, Knee looks less inflamed today (I did not see 05/26) Per , continuing Rocephin, reevaluating joint and CRP tomorrow (43 on admit) and will consider arthroscopic washout . NPO overnight in case no cl inical improvement overnight Although painful with movement, today received ~ 10 am 5 mg oxycodone, and 0.5 mg IV dilaudid once this afternoon, comfortable at rest No medical problems Possible esophageal stricture, tolerating PO, Outpatient follow up Qualifiers: Chronicity: acute Qualified Code(s): M25.561 - Pain in right knee
[2020-05-28] MEDS: HYDROmorphone 0.5 MG/0.5 ML SYRINGE IVP PRN ×5 (00:54→12:16)
[2020-05-28] MEDS: SODIUM CHLORIDE FLUSH 0.9% 10 ML SYRINGE IVP SCH ×3 (01:22→17:22)
[2020-05-28 05:33] LABS: BASOPHILS % (AUTO) 0.3 %; EOSINOPHILS # (AUTO) 0.3 10^3/uL (0.0-0.7); EOSINOPHILS % (AUTO) 1.7 %; HGB - HEMOGLOBIN 12.6 g/dL (14.0-18.0); LYMPHOCYTES # (AUTO) 1.2 10^3/uL (1.5-3.5); LYMPHOCYTES % (AUTO) 7.8 %; MEAN CORPUSCULAR HEMOGLOBIN 32.6 pg (27.0-31.0); MEAN CORPUSCULAR HGB CONC 34.6 g/dL (32.0-36.0); MEAN CORPUSCULAR VOLUME 94.1 fL (80.0-94.0); MEAN PLATELET VOLUME 9.7 fL (7.4-11.4); MONOCYTES # (AUTO) 1.4 10^3/uL (0.0-1.0); MONOCYTES % (AUTO) 8.7 %; NEUTROPHILS # (AUTO) 12.5 10^3/uL (1.5-6.6); NEUTROPHILS % (AUTO) 80.2 %; PLT - PLATELET COUNT 159 10^3/uL (130-450); RED BLOOD COUNT 3.87 10^6/uL (4.70-6.10); RED CELL DISTRIBUTION WIDTH 12.2 % (12.0-15.0); WHITE BLOOD COUNT 15.6 x10^3/uL (4.8-10.8)
[2020-05-28 05:43] LABS: CALCIUM 8.1 mg/dL (8.5-10.3); CREATININE 0.9 mg/dL (0.6-1.2)
[2020-05-28 05:52] LABS: PLATELET MORPHOLOGY NORMAL APPEARANCE (NORMAL); RBC MORPHOLOGY (MULTIPLE) NORMAL APPEARANCE (NORMAL)
[2020-05-28 05:53] LABS: PLATELET ESTIMATE, MANUAL NORMAL (130-450,000) (NORMAL)
[2020-05-28] MEDS: SODIUM CHLORIDE 0.9% 1,000 ML IV SCH ×2 (07:59→23:31)
[2020-05-28] MEDS: ACETAMINOPHEN 325 MG TABLET PO PRN (07:59)
[2020-05-28] MEDS: polyethylene glycoL 3350 17 GM PACKET PO SCH (07:59)
[2020-05-28] MEDS: oxyCODONE 5 MG TABLET PO PRN ×2 (08:00→22:13)
--- NOTE | 2020-05-28 08:10 | PROVIDER PROGRESS NOTE ---
Subjective - Prog Note Date Prog Note Date: 05/28/20 - Subjective Pt reports feeling: No change (Cultures from right knee are growing 2+ staph at 48 hours. Despite negative gram stain. Discussed with patient yesterday that positive cultures would necessitate a washout Irrigation /debridement arthroscopically and continued antibiotics pending sensitivity. He is scheduled for Arthroscopic I&D.) Objective - Vital Signs/Intake & Output Vital Signs: Vital Signs x48h Temp Pulse Resp BP BP Pulse Ox 05/28/20 03:00 37.3 C 93 26 H 120/61 96 05/28/20 01:27 38 C H 05/28/20 00:46 37.7 C H 93 16 142/69 H 97 Intake & Output: Intake & Output 05/25/20 05/26/20 05/27/20 05/28/20 23:59 23:59 23:59 23:59 Intake Total 1661.85 2644.434 767.6 Output Total 400 3050 1200 Balance 1261.85 -405.566 -432.4 - Lab Results Fish Bones: 05/28/20 04:50 05/28/20 04:50 Other Labs: Lab Results x24hrs 05/28/20 05/28/20 05/27/20 Range/Units 04:50 04:50 04:50 WBC 15.6 H (4.8-10.8) x10^3/uL RBC 3.87 L (4.70-6.10) 10^6/uL Hgb 12.6 L (14.0-18.0) g/dL Hct 36.4 L (42.0-52.0) % MCV 94.1 H (80.0-94.0) fL MCH 32.6 H (27.0-31.0) pg MCHC 34.6 (32.0-36.0) g/dL RDW 12.2 (12.0-15.0) % Plt Count 159 (130-450) 10^3/uL MPV 9.7 (7.4-11.4) fL Neut # (Auto) 12.5 H (1.5-6.6) 10^3/uL Lymph # (Auto) 1.2 L (1.5-3.5) 10^3/uL [place] # (Auto) 1.4 H (0.0-1.0) 10^3/uL Eos # (Auto) 0.3 (0.0-0.7) 10^3/uL Baso # (Auto) 0.0 (0.0-0.1) 10^3/uL Absolute Nucleated RBC 0.00 x10^3/uL Nucleated RBC % 0.0 /100WBC Manual Slide Review Indicated Platelet Estimate NORMAL (130-450,000) (NORMAL) Platelet Morphology NORMAL APPEARANCE (NORMAL) RBC Morph Micro Appear NORMAL APPEARANCE (NORMAL) Sodium 133 L (135-145) mmol/L Potassium 3.5 (3.5-5.0) mmol/L Chloride 97 L (101-111) mmol/L Carbon Dioxide 23 (21-32) mmol/L Anion Gap 13.0 (6-13) BUN 14 (6-20) mg/dL Creatinine 0.9 (0.6-1.2) mg/dL Estimated GFR (MDRD) 83 L (>89) Glucose 123 H (70-100) mg/dL Calcium 8.1 L (8.5-10.3) mg/dL C-Reactive Protein 38.5 H (0-1.0) mg/dL Sepsis Event Note (H) - Evaluation Possible source of Sepsis: positive: Bone/Joint - Sepsis Criteria Sepsis Criteria: Recorded Temperature greater than 38.3C or Less than 36C, WBC count greater than 10% bands Assessment/Plan - Problem List (1) Knee effusion, right Impression: To operating room today for I&D right knee. Risks and benefits including the need for repeat I&D and prolonged antibiotic treatment discussed with patient in detail and consent signed.
[2020-05-28] MEDS: cefTRIAXone 2 GM in SODIUM CHLORIDE 0.9% MINIBAG 100 ML IV SCH (08:19)
--- NOTE | 2020-05-28 08:50 | ANESTHESIA ---
Pre-Anesthesia VS, & Labs - Diagnosis Diagnosis Rule out sepsis right knee. Early diagnosis. - Procedure R knee I&D Vital Signs: Temp Pulse Resp BP Pulse Ox 37.3 C 93 26 H 120/61 96 05/28/20 03:00 05/28/20 03:00 05/28/20 03:00 05/28/20 03:00 05/28/20 03:00 Height 6 ft 4 in Weight (kg) 104.32 kg Body Mass Index 28.0 - NPO >8 hours - Lab Results Current Lab Results: Laboratory Tests 05/28/20 04:50: Sodium 133 L, Potassium 3.5, Chloride 97 L, Carbon Dioxide 23, Anion Gap 13.0, BUN 14, Creatinine 0.9, Estimated GFR (MDRD) 83 L, Glucose 123 H , Calcium 8.1 L 05/28/20 04:50: WBC 15.6 H, RBC 3.87 L, Hgb 12.6 L, Hct 36.4 L, MCV 94.1 H, MCH 32.6 H, MCHC 34.6, RDW 12.2, Plt Count 159, MPV 9.7, Neut # (Auto) 12.5 H, Lymph # (Auto) 1.2 L, Clark # (Auto) 1.4 H, Eos # (Auto) 0.3, Baso # (Auto) 0.0, Absolute Nucleated RBC 0.00, Nucleated RBC % 0.0, Manual Slide Review Indicated, Platelet Estimate NORMAL (130-450,000), Platelet Morphology NORMAL APPEARANCE, RBC Morph Micro Appear NORMAL APPEARANCE 05/27/20 04:50: C-Reactive Protein 38.5 H 05/27/20 04:50: Sodium 134 L, Potassium 3.5, Chloride 100 L, Carbon Dioxide 24, Anion Gap 10.0, BUN 16, Creatinine 0.9, Estimated GFR (MDRD) 83 L, Glucose 153 H , Calcium 8.4 L 05/27/20 04:50: WBC 13.2 H, RBC 4.06 L, Hgb 13.2 L, Hct 38.3 L, MCV 94.3 H, MCH 32.5 H, MCHC 34.5, RDW 12.5, Plt Count 151, MPV 10.2, Neut # (Auto) Not Reportable, Lymph # (Auto) Not Reportable, Clark # (Auto) Not Reportable, Eos # (Auto) Not Reportable, Baso # (Auto) Not Reportable, Absolute Nucleated RBC Not Reportable, Total Counted 100, Band Neuts % (Manual) 14 H, Abnorm Lymph % (Manual) 0, Nucleated RBC % Not Reportable, Neutrophils # (Manual) 11.9 H, L ymphocytes # (Manual) 0.9 L, Monocytes # (Manual) 0.4, Eosinophils # (Manual) 0.0, Basophils # (Manual) 0.0, Differential Comment MANUAL DIFFERENTIAL, Platelet Estimate NORMAL (130-450,000), RBC Morph Micro Appear NORMAL APPEARANCE 05/26/20 14:55: ESR 12 05/26/20 14:55: Sodium 134 L, Potassium 3.9, Chloride 93 L, Carbon Dioxide 26, Anion Gap 15.0 H, BUN 19, Creatinine 1.0, Estimated GFR (MDRD) 73 L, Glucose 156 H, Calcium 9.0, Total Bilirubin 1.4 H, AST 20, ALT 34, Alkaline Phosphatase 82, C-Reactive Protein 43.3 H, Total Protein 8.1, Albumin 3.9, Globulin 4.2, Albumin /Globulin Ratio 0.9 L, Lipase 20 L 05/26/20 14:55: WBC 16.5 H, RBC 4.68 L, Hgb 15.4, Hct 43.4, MCV 92.7, MCH 32.9 H , MCHC 35.5, RDW 12.4, Plt Count 159, MPV 9.7, Neut # (Auto) 13.9 H, Lymph # (Auto) 1.1 L, Clark # (Auto) 1.3 H, Eos # (Auto) 0.0, Baso # (Auto) 0.0, Absolute Nucleated RBC 0.00, Nucleated RBC % 0.0 Fish Bones: 05/28/20 04:50 05/28/20 04:50 Home Medications and Allergies Home Medications: Ambulatory Orders HYDROcod/ACETAM 5/325 [[place] 5/325] 2 tab PO Q4HR 05/27/20 Active Medications Acetaminophen (Tylenol) 650 mg PO Q6HR PRN PRN Reason: Pain or Fever > 38C (100.4F) Last Admin: 05/28/20 07:59 Dose: 650 mg Documented by: Hydromorphone HCl (Dilaudid Inj Syringe) 0.5 mg IVP Q2H PRN PRN Reason: PAIN Last Admin: 05/28/20 08:00 Dose: 0.5 mg Documented by: Sodium Chloride (Normal Saline 0.9%) 1,000 mls @ 83 mls/hr IV .Q12H3M [facility] Last Admin: 05/28/20 07:59 Dose: 83 mls/hr Documented by: Ceftriaxone Sodium 2 gm/ (Sodium Chloride) 100 mls @ 200 mls/hr IV Q24H [facility] Last Admin: 05/28/20 08:19 Dose: 200 mls/hr Documented by: Oxycodone HCl (Roxicodone) 5 mg PO Q4H PRN PRN Reason: PAIN Last Admin: 05/28/20 08:00 Dose: 5 mg Documented by: Polyethylene Glycol (Miralax) 17 gm PO DAILY [facility] Last Admin: 05/28/20 07:59 Dose: Not Given Documented by: Sodium Chloride (Normal Saline Flush 0.9%) 10 ml IVP PRN PRN PRN Reason: NEEDED PER PROVIDER ORDERS Sodium Chloride (Normal Saline Flush 0.9%) 10 ml IVP 0100,0900,1700 [facility] Last Admin: 05/28/20 07:59 Dose: Not Given Documented by: HYDROcod/ACETAM 5/325 [[place] 5/325] 2 tab PO Q4HR 05/27/20 Allergies/Adverse Reactions: Allergies Allergy/AdvReac Type Severity Reaction Status Date / Time No Known Drug Allergies Allergy Verified 05/26/20 13:27 Anes History & Medical History - Anesthetic History Anesthesia Complications: reports: No previous complications Family history of Anesthesia Complications: Denies Family history of Malignant Hyperthermia: Denies - Medical History Cardiovascular: reports: None Pulmonary: reports: None Neuro: reports: None Musculoskeletal: reports: Chronic back pain, Other (Sciatica, Arthritis) Skin: reports: Other Smoking Status: Never smoker Psychosocial: reports: No issues indicated Other Past Medical History: melanoma - Surgical History Orthopedic: Other (bilateral wrist surgery due to an injury while riding a horse) Exam General: Alert, Oriented x3 Dental: WNL Mouth Opening: Greater than 4 Fingerbreadths Neck Mobility: Normal Mallampati classification: I Thyromental Distance: greater than 6 cm Respiratory: Lungs clear, Normal breath sounds Cardiovascular: Regular rate Neurological: Normal speech Mental/Cognitive Status: Alert/Oriented X3, Normal for patient Cognitive Status: Within normal limits Plan Anesthesia Type: General Consent for Procedure(s) Verified and Reviewed: Yes Code Status: Attempt Resuscitation ASA classification: 2-Mild systemic disease Is this case an emergency?: No
[2020-05-28] MEDS ORDERED: BUPIVACAINE 0.25% PF 30 ML VIAL ONE (08:55)
[2020-05-28] MEDS ORDERED: BUPIVACAINE 0.25% PF 30 ML VIAL SUBQ ONE ×2 (10:53)
--- NOTE | 2020-05-28 11:23 | OPERATIVE REPORT ---
Operative Report - General Admit Date: 05/26/20 Planned Procedure: Irrigation and debridement right knee arthroscopic Pre-Op Diagnosis: Septic right knee Procedure Performed: Irrigation and debridement right knee debridement of medial/lateral meniscus tear and synovectomy extensive Post Op Diagnosis: Same - Procedure Note Primary Surgeon: Khari Anesthesia Technique: General LMA Pathology: Moderate synovitis medial and lateral meniscus tears, MODERATED GRADE 2 CHONDROMALACIA TRICOMPARTMENTAL Indications: This gentleman presented to 48 hours ago with an increased CRP and fever and pain in the right knee. After a trial of Rocephin for 48 hours he remained febrile and now will be taken to the operating room after his aspirate of the knee grew out staph aureus. - Other Other Information/Narrative: Patient was taken to the operating room placed supine in the operating room table. A timeout was performed identifying his right lower extremity. A general anesthetic was administered with an LMA. His right lower extremity was prepped and draped in usual sterile fashion. A standard anterolateral and anteromedial portal for an arthroscopic evaluation was done. We placed a 30 degree scope anteromedially and anterolaterally and in the medial compartment immediately noted a medial meniscus tear and moderate synovitis. Debridement was done using a 4.2 Gator blade of the medial meniscus tear and a chondroplasty was done of the grade II chondromalacia in the medial compartment. The ACL and PCL were intact posterior medially posterior laterally irrigant was used. We subsequently checked the lateral compartment there was grade II chondromalacia in the lateral compartment as well as significant amount of synovitis. Debridement of the synovitis was done and irrigation was done thoroughly. A 4.2 Gator blade was used to debride the lateral meniscus. In the suprapatellar pouch there was grade II chondromalacia on the patellofemoral joint. After this was done I synovectomy was performed minimally and irrigation and debridement was done of suprapatellar medial lateral and posterior O compartments. 5 L of fluid was irrigated through the knee. He was then closed at the portal sites with 4-0 Monocryl. 25 cc of quarter percent Marcaine was injected into the knee. This is primarily in the portal sites and the synovium. He was transferred to the recovery room in stable condition.
[2020-05-28] MEDS ORDERED: LACTATED RINGERS 1,000 ML IV ONE ×2 (11:27→11:49)
--- NOTE | 2020-05-28 11:39 | PROVIDER PROGRESS NOTE ---
Subjective - Prog Note Date Prog Note Date: 05/28/20 Prog Note Time: 11:40 - Subjective Pt reports feeling: No change Objective - Vital Signs/Intake & Output Vital Signs: Vital Signs x48h Temp Pulse Pulse Resp BP BP Pulse Ox 05/28/20 11:33 36.8 C 90 15 134/82 H 96 05/28/20 11:28 96 15 144/85 H 96 05/28/20 11:24 37.2 C 100 12 147/93 H 95 05/28/20 08:00 37.5 C 98 20 149/85 H 95 Intake & Output: Intake & Output 05/25/20 05/26/20 05/27/20 05/28/20 23:59 23:59 23:59 23:59 Intake Total 1661.85 2644.434 867.6 Output Total 400 3050 1650 Balance 1261.85 -405.566 -782.4 - Lab Results Fish Bones: 05/28/20 04:50 05/28/20 04:50 Other Labs: Lab Results x24hrs 05/28/20 05/28/20 05/27/20 Range/Units 04:50 04:50 04:50 WBC 15.6 H (4.8-10.8) x10^3/uL RBC 3.87 L (4.70-6.10) 10^6/uL Hgb 12.6 L (14.0-18.0) g/dL Hct 36.4 L (42.0-52.0) % MCV 94.1 H (80.0-94.0) fL MCH 32.6 H (27.0-31.0) pg MCHC 34.6 (32.0-36.0) g/dL RDW 12.2 (12.0-15.0) % Plt Count 159 (130-450) 10^3/uL MPV 9.7 (7.4-11.4) fL Neut # (Auto) 12.5 H (1.5-6.6) 10^3/uL Lymph # (Auto) 1.2 L (1.5-3.5) 10^3/uL Charles # (Auto) 1.4 H (0.0-1.0) 10^3/uL Eos # (Auto) 0.3 (0.0-0.7) 10^3/uL Baso # (Auto) 0.0 (0.0-0.1) 10^3/uL Absolute Nucleated RBC 0.00 x10^3/uL Nucleated RBC % 0.0 /100WBC Manual Slide Review Indicated Platelet Estimate NORMAL (130-450,000) (NORMAL) Platelet Morphology NORMAL APPEARANCE (NORMAL) RBC Morph Micro Appear NORMAL APPEARANCE (NORMAL) Sodium 133 L (135-145) mmol/L Potassium 3.5 (3.5-5.0) mmol/L Chloride 97 L (101-111) mmol/L Carbon Dioxide 23 (21-32) mmol/L Anion Gap 13.0 (6-13) BUN 14 (6-20) mg/dL Creatinine 0.9 (0.6-1.2) mg/dL Estimated GFR (MDRD) 83 L (>89) Glucose 123 H (70-100) mg/dL Calcium 8.1 L (8.5-10.3) mg/dL C-Reactive Protein 38.5 H (0-1.0) mg/dL Sepsis Event Note (H) - Evaluation Possible source of Sepsis: positive: Bone/Joint - Sepsis Criteria Sepsis Criteria: Recorded Temperature greater than 38.3C or Less than 36C, WBC count greater than 10% bands
[2020-05-28] MEDS ORDERED: MORPHINE 2 MG/ML CARPUJECT IVP PRN (11:42)
[2020-05-28] MEDS ORDERED: fentaNYL 100 MCG/2 ML VIAL IVP PRN (11:42)
[2020-05-28] MEDS ORDERED: ePHEDrine 50 MG/ML VIAL IVP PRN (11:42)
[2020-05-28] MEDS ORDERED: ONDANSETRON 4 MG/2 ML VIAL IVP PRN (11:42)
[2020-05-28] MEDS ORDERED: HYDROmorphone 0.5 MG/0.5 ML SYRINGE IVP PRN (11:42)
[2020-05-28] MEDS ORDERED: METOCLOPRAMIDE 10 MG/2 ML VIAL IVP PRN (11:42)
[2020-05-28] MEDS ORDERED: NALOXONE 0.4 MG/ML VIAL IVP PRN (11:42)
[2020-05-28] MEDS ORDERED: ATROPINE ABBOJECT 1 MG/10 ML SYRINGE IVP PRN (11:42)
--- NOTE | 2020-05-28 11:42 | ANESTHESIA POST OP EVALUATION ---
Anesthesia Post Eval - Post Anesthesia Eval Vitals: Last Vital Signs Temp 36.8 C 05/28/20 11:33 Pulse 92 05/28/20 11:37 Resp 19 05/28/20 11:37 BP 126/81 H 05/28/20 11:37 Pulse Ox 97 05/28/20 11:37 CV Function Including HR & BP: positive: Stable Pain Control: positive: Satisfactory Nausea & Vomiting: positive: Negative Mental Status: positive: Baseline Respiratory Status: Airway Patent Hydration Status: Satisfactory Anesthesia Complications: positive: None
[2020-05-28] MEDS ORDERED: LACTATED RINGERS 1,000 ML IV SCH (12:00)
[2020-05-28] MEDS ORDERED: CEFEPIME IV SCH (15:30)
[2020-05-28] MEDS ORDERED: SODIUM CHLORIDE 0.9% IV SCH (15:30)
[2020-05-28] MEDS: ceFAZolin 2 GM in SODIUM CHLORIDE 0.9% 100ML 100 ML IV SCH ×2 (15:50→23:31)
--- NOTE | 2020-05-28 19:30 | PROVIDER PROGRESS NOTE ---
Subjective - Prog Note Date Prog Note Date: 05/28/20 Prog Note Time: 19:20 (seen early this morning) - Subjective Subjective: Late entry from patient seen early this morning when cultures + No new complaints, R knee still sore Aware of + SA in knee, aware likely will need PICC Current Medications - Current Medications Current Medications: Acetaminophen (Tylenol) 650 mg PO Q6HR PRN PRN Reason: Pain or Fever > 38C (100.4F) Last Admin: 05/28/20 07:59 Dose: 650 mg Documented by: Hydromorphone HCl (Dilaudid Inj Syringe) 0.5 mg IVP Q2H PRN PRN Reason: PAIN Last Admin: 05/28/20 12:16 Dose: 0.5 mg Documented by: Sodium Chloride (Normal Saline 0.9%) 1,000 mls @ 83 mls/hr IV .Q12H3M [facility] Last Infusion: 05/28/20 13:00 Dose: 83 mls/hr Documented by: Cefazolin Sodium 2 gm/ Sodium (Chloride) 100 mls @ 200 mls/hr IV Q8H [facility] Last Infusion: 05/28/20 16:22 Dose: Infused Documented by: Oxycodone HCl (Roxicodone) 5 mg PO Q4H PRN PRN Reason: PAIN Last Admin: 05/28/20 08:00 Dose: 5 mg Documented by: Polyethylene Glycol (Miralax) 17 gm PO DAILY [facility] Last Admin: 05/28/20 07:59 Dose: Not Given Documented by: Sodium Chloride (Normal Saline Flush 0.9%) 10 ml IVP PRN PRN PRN Reason: NEEDED PER PROVIDER ORDERS Sodium Chloride (Normal Saline Flush 0.9%) 10 ml IVP 0100,0900,1700 [facility] Last Admin: 05/28/20 17:22 Dose: Not Given Documented by: Objective - Vital Signs/Intake & Output Vital Signs: Vital Signs x48h Temp Pulse Pulse Resp BP BP Pulse Ox 05/28/20 16:00 36.9 C 90 18 144/89 H 95 05/28/20 11:47 89 15 129/71 97 05/28/20 11:44 36.9 C 88 15 134/85 H 95 05/28/20 11:37 92 19 126/81 H 97 05/28/20 11:33 36.8 C 90 15 134/82 H 96 05/28/20 11:28 96 15 144/85 H 96 05/28/20 11:24 37.2 C 100 12 147/93 H 95 Intake & Output: Intake & Output 05/25/20 05/26/20 05/27/20 05/28/20 23:59 23:59 23:59 23:59 Intake Total 1661.85 2644.434 2385.133 Output Total 400 3050 1900 Balance 1261.85 -405.566 485.133 - Objective General Appearance: positive: No acute distress, Other (lying in bed, using trapeze without difficulty) Eyes Bilateral: positive: Normal inspection, PERRL, EOMI Respiratory: positive: Chest non-tender, No respiratory distress, Breath sounds nml Cardiovascular: positive: Regular rate & rhythm, No murmur Abdomen: positive: Nml bowel sounds, No distention. negative: Tenderness Skin: positive: Warm, Dry, Other (R knee with moderate swelling, calor, painful with weight bearing) Neurologic/Psychiatric: positive: Oriented x3, Mood/affect nml - Lab Results Fish Bones: 05/28/20 04:50 05/28/20 04:50 Other Labs: Lab Results x24hrs 05/28/20 05/28/20 Range/Units 04:50 04:50 WBC 15.6 H (4.8-10.8) x10^3/uL RBC 3.87 L (4.70-6.10) 10^6/uL Hgb 12.6 L (14.0-18.0) g/dL Hct 36.4 L (42.0-52.0) % MCV 94.1 H (80.0-94.0) fL MCH 32.6 H (27.0-31.0) pg MCHC 34.6 (32.0-36.0) g/dL RDW 12.2 (12.0-15.0) % Plt Count 159 (130-450) 10^3/uL MPV 9.7 (7.4-11.4) fL Neut # (Auto) 12.5 H (1.5-6.6) 10^3/uL Lymph # (Auto) 1.2 L (1.5-3.5) 10^3/uL [place] # (Auto) 1.4 H (0.0-1.0) 10^3/uL Eos # (Auto) 0.3 (0.0-0.7) 10^3/uL Baso # (Auto) 0.0 (0.0-0.1) 10^3/uL Absolute Nucleated RBC 0.00 x10^3/uL Nucleated RBC % 0.0 /100WBC Manual Slide Review Indicated Platelet Estimate NORMAL (130-450,000) (NORMAL) Platelet Morphology NORMAL APPEARANCE (NORMAL) RBC Morph Micro Appear NORMAL APPEARANCE (NORMAL) Sodium 133 L (135-145) mmol/L Potassium 3.5 (3.5-5.0) mmol/L Chloride 97 L (101-111) mmol/L Carbon Dioxide 23 (21-32) mmol/L Anion Gap 13.0 (6-13) BUN 14 (6-20) mg/dL Creatinine 0.9 (0.6-1.2) mg/dL Estimated GFR (MDRD) 83 L (>89) Glucose 123 H (70-100) mg/dL Calcium 8.1 L (8.5-10.3) mg/dL Sepsis Event Note (H) - Evaluation Possible source of Sepsis: positive: Bone/Joint - Sepsis Criteria Sepsis Criteria: Recorded Temperature greater than 38.3C or Less than 36C, WBC count greater than 10% bands Assessment/Plan - Problem List (1) Septic arthritis Impression: Conclusion/Plan: R knee arthrocentesis + staph aureus Sensitivities pending before surgery s/p I &D this morning 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
[2020-05-29] MEDS: HYDROmorphone 0.5 MG/0.5 ML SYRINGE IVP PRN ×4 (00:11→14:29)
[2020-05-29] MEDS: SODIUM CHLORIDE FLUSH 0.9% 10 ML SYRINGE IVP SCH ×2 (01:44→10:21)
[2020-05-29] MEDS: oxyCODONE 5 MG TABLET PO PRN ×2 (02:48→12:50)
[2020-05-29] MEDS: ACETAMINOPHEN 325 MG TABLET PO PRN (02:48)
[2020-05-29 05:41] LABS: BASOPHILS % (AUTO) 0.3 %; EOSINOPHILS # (AUTO) 0.1 10^3/uL (0.0-0.7); EOSINOPHILS % (AUTO) 0.6 %; HGB - HEMOGLOBIN 11.8 g/dL (14.0-18.0); LYMPHOCYTES # (AUTO) 1.4 10^3/uL (1.5-3.5); LYMPHOCYTES % (AUTO) 9.3 %; MEAN CORPUSCULAR HEMOGLOBIN 31.9 pg (27.0-31.0); MEAN CORPUSCULAR HGB CONC 33.9 g/dL (32.0-36.0); MEAN CORPUSCULAR VOLUME 94.1 fL (80.0-94.0); MEAN PLATELET VOLUME 9.4 fL (7.4-11.4); MONOCYTES % (AUTO) 6.9 %; NEUTROPHILS % (AUTO) 81.7 %; PLT - PLATELET COUNT 189 10^3/uL (130-450); RED CELL DISTRIBUTION WIDTH 12.2 % (12.0-15.0); WHITE BLOOD COUNT 14.7 x10^3/uL (4.8-10.8)
[2020-05-29 05:49] LABS: CREATININE 0.8 mg/dL (0.6-1.2)
[2020-05-29] MEDS: ceFAZolin 2 GM in SODIUM CHLORIDE 0.9% 100ML 100 ML IV SCH ×2 (07:00→13:37)
[2020-05-29] MEDS ORDERED: DEXAMETHASONE 4 MG/ML VIAL IVP ONE (09:10)
[2020-05-29] MEDS ORDERED: ONDANSETRON 4 MG/2 ML VIAL IVP ONE (09:10)
[2020-05-29] MEDS ORDERED: fentaNYL 100 MCG/2 ML VIAL IVP ONE (09:10)
[2020-05-29] MEDS ORDERED: KETOROLAC 30 MG/ML VIAL IVP ONE (09:10)
[2020-05-29] MEDS ORDERED: PROPOFOL 200 MG/20 ML VIAL IVP ONE (09:10)
[2020-05-29] MEDS: polyethylene glycoL 3350 17 GM PACKET PO SCH (10:22)
[2020-05-29] MEDS: SODIUM CHLORIDE 0.9% 1,000 ML IV SCH (10:25)
--- NOTE | 2020-05-29 12:28 | PROVIDER PROGRESS NOTE ---
Subjective - Prog Note Date Prog Note Date: 05/29/20 Prog Note Time: 12:26 - Subjective Pt reports feeling: Improved (Much beetter today. Should go home on 10 days of Keflex 500 mg every six hours. Dressing changed. Wound benign. Full weight bearing with PT) Objective - Vital Signs/Intake & Output Vital Signs: Vital Signs x48h Temp Pulse Resp BP Pulse Ox 05/29/20 08:00 36.7 C 75 14 149/88 H 96 Intake & Output: Intake & Output 05/26/20 05/27/20 05/28/20 05/29/20 23:59 23:59 23:59 23:59 Intake Total 1661.85 2644.434 4355.900 2245.15 Output Total 400 3050 3225 3225 Balance 1261.85 -303.170 7057.900 -979.85 - Lab Results Fish Bones: 05/29/20 05:35 05/29/20 05:35 Other Labs: Lab Results x24hrs 05/29/20 05/29/20 Range/Units 05:35 05:35 WBC 14.7 H (4.8-10.8) x10^3/uL RBC 3.70 L (4.70-6.10) 10^6/uL Hgb 11.8 L (14.0-18.0) g/dL Hct 34.8 L (42.0-52.0) % MCV 94.1 H (80.0-94.0) fL MCH 31.9 H (27.0-31.0) pg MCHC 33.9 (32.0-36.0) g/dL RDW 12.2 (12.0-15.0) % Plt Count 189 (130-450) 10^3/uL MPV 9.4 (7.4-11.4) fL Neut # (Auto) 12.0 H (1.5-6.6) 10^3/uL Lymph # (Auto) 1.4 L (1.5-3.5) 10^3/uL [place] # (Auto) 1.0 (0.0-1.0) 10^3/uL Eos # (Auto) 0.1 (0.0-0.7) 10^3/uL Baso # (Auto) 0.0 (0.0-0.1) 10^3/uL Absolute Nucleated RBC 0.00 x10^3/uL Nucleated RBC % 0.0 /100WBC Sodium 134 L (135-145) mmol/L Potassium 3.6 (3.5-5.0) mmol/L Chloride 100 L (101-111) mmol/L Carbon Dioxide 25 (21-32) mmol/L Anion Gap 9.0 (6-13) BUN 14 (6-20) mg/dL Creatinine 0.8 (0.6-1.2) mg/dL Estimated GFR (MDRD) 95 (>89) Glucose 146 H (70-100) mg/dL Calcium 8.0 L (8.5-10.3) mg/dL Sepsis Event Note (H) - Evaluation Possible source of Sepsis: positive: Bone/Joint - Sepsis Criteria Sepsis Criteria: Recorded Temperature greater than 38.3C or Less than 36C, WBC count greater than 10% bands
--- NOTE | 2020-05-29 12:45 | Discharge Plan ---
Discharge Plan Problem Reviewed?: Yes Disposition: Home, Self Care Condition: Stable Prescriptions: HYDROcod/ACETAM 5/325 [[place] 5/325] 2 tab PO Q4HR PRN #24 tab PRN Reason: Pain 5-7 Cephalexin [Keflex] 500 mg PO QID #40 capsule Diet: Regular Activity Restrictions: Activity as Tolerated Shower Restrictions: No Assistance Devices: Crutches Weight Bearing: Full Weight Instruction Topics: Knee Surg Exercise After, Meniscus Probs Tx Health Concerns: You were admitted with a painful and swollen right knee which turned out to have Staph Aureus bacteria in it, and synovitis and a meniscus tear. The management by the Orthopedist recommended that you go home to take 10 days of Keflex, 4 ti mes a day, and pain medications have been newly ordered for you. New prescriptions have been electronically sent to the [facility] pharmacy. The Orthopedic doctor, Dr. Lucia, recommended that you have follow-up in the [facility] here. Call [phone] for an appointment. You may resume all your usual medicines that you took prehospitalization, if any. Plan of Treatment: As above. Care Goals: Improvement in symptoms and stabilization are the goals. Assessment: Patient understands and is agreeable with the plan. Additional Instructions or Follow Up instructions: If you have new or worsening symptoms, call your PCP for advice or come to the ER. No Smoking: If you smoke, Please STOP! Call for help. Follow-up with: Cain Paulino MD [Primary Care Provider] -
--- NOTE | 2020-05-29 12:53 | DISCHARGE SUMMARY ---
"Discharge Summary Admit Date: 05/26/20 Discharge Date: 05/29/20 Discharging Provider: Kristine Ferrell MD Primary Care Provider: Sabrina Roach NP Condition at Discharge: Stable Discharge Disposition: 01 Home, Self Care - [facility] History of Present Illness: From the admission H&P of Dr Lizeth Santamaria: Patient is a 74-year-old male with history of sciatica and chronic back pain who presented to the ED with complaint of right knee swelling and pain. Symptoms started on Sunday night which was 4 days ago. It got worse Sunday morning and 3 days later it was even more swollen. He went to see his PCP and images were ordered. However because of worsening pain he decided to go to the emergency room. The knee joint was swollen and warm to touch. He denied any recent injury or puncture to the knee. He had been painting in the garage on his knees 4 days ago prior to the onset of his symptoms. He denied any fever but reported night sweats for the past 3 days. He denied chest pain, dyspnea or abdominal pain but reported nausea and vomiting. He reported previous occurrences of similar episodes twice in the past. He was seen by Orthopedics, Dr Lucia, in the ED and had an aspiration of the knee joint done, sent for culture. He was started on Rocephin 2 g IV every 24 hours. Upon arrival to the med/surg unit he was found to have a fever with a temp of 39.2 degree Celsius. He is being admitted for management of a septic joint. - CONSULTS | PROCEDURES Consultations: Dr Lucia Procedures: Arthroscopy 05/28/20 - HOSPITAL COURSE Hospital Course: (1) Septic arthritis The R knee arthrocentesis grew staph aureus, resistant to PCN, otherwise pansensitive. He was kept on Ceftriaxone iv for treatment, changed to Ancef for more appropriate Staph aureus coverage. He continued to spike a fever, had repeat blood cultures, and was taken to the OR on 05/28/[address] Lucia of Orthopedics found a meniscus tear and synovitis. On 05/29/20, the Orthopedist approved PT with full weight bearing, and OKd discharge home, advised to take Keflex 500 mg po qid for 10 days and his pain meds were refilled. (2) Meniscus tear As per arthroscopy (3) Synovitis As per arthroscopy (4) Anemia The Hgb was 15 at admission and dropped daily>> 13>> 12>> 11. There was concern that he may have had anemia of chronic disease and therefore concern of a s moldering infection. The MCV was minimally elevated at 94. - ALLERGIES Allergies/Adverse Reactions: Allergies Allergy/AdvReac Type Severity Reaction Status Date / Time No Known Drug Allergies Allergy Verified 05/26/20 13:27 - MEDICATIONS Home Medications: Ambulatory Orders Medication Instructions Recorded Confirmed Cephalexin [Keflex] 500 mg PO QID #40 capsule 05/29/20 HYDROcod/ACETAM 5/325 [[place] 5/325] 2 tab PO Q4HR PRN #24 tab 05/29/20 Hydromorphone HCl [Dilaudid] 4 mg PO TID PRN #12 tablet 05/29/20 - PHYSICAL EXAM AT DISCHARGE General Appearance: positive: No acute distress, Alert Eyes Bilateral: positive: Normal inspection, EOMI ENT: positive: ENT inspection nml, No signs of dehydration Neck: positive: Nml inspection, No JVD Respiratory: positive: No respiratory distress Cardiovascular: positive: Regular rate & rhythm Abdomen: positive: Non-tender Skin: positive: Color nml Extremities: positive: Other (R knee swollen, warm, tender to touch, no discharge.) Neurologic/Psychiatric: positive: Oriented x3 (Non-focal) - LABS Result Diagrams: 05/29/20 05:35 05/29/20 05:35 - DIAGNOSTIC IMAGING Diagnostic Imaging Results: Final report reviewed - SEPSIS Possible source of Sepsis: Bone/Joint Sepsis Criteria: Recorded Temperature greater than 38.3C or Less than 36C, WBC count greater than 10% bands - FOLLOW UP Follow Up: Orthopedic clinic and PCP follow-up were advised. - TIME SPENT Time Spent in Discharge (Minutes): 25"
[2020-05-29 15:53] VITALS: BP 146/92
== END 2020-05-29 16:14 | disposition home or self-care (01) | DRG 854 ==
LOC: ED 13:02 → MS2 18:18
PROVIDERS: ADMIT Nurse Practitioner; ATTEND Internal Medicine
PROC: 0SBC4ZZ Excision of Right Knee Joint, Percutaneous Endoscopic Approach (ICD-10-PCS; principal; 2020-05-28 10:00)
DX: A41.02 Sepsis due to Methicillin resistant Staphylococcus aureus (principal); M00.061 Staphylococcal arthritis, right knee; M65.861 Other synovitis and tenosynovitis, right lower leg; M23.200 Derangement of unspecified lateral meniscus due to old tear or injury, right knee; M23.203 Derangement of unspecified medial meniscus due to old tear or injury, right knee; M94.261 Chondromalacia, right knee; D64.9 Anemia, unspecified; M54.30 Sciatica, unspecified side
CPT/HCPCS: 20610; 36415; 73700; 80048; 80053; 81001; 81599; 83690; 85025; 85651; 86140; 87040; 87070; 87181; 87205; 89051; 89060; 96361; 96372; 96374; 97162; 99284; 99285; A9270; J1170; J7120; 81003; 87086

== ENCOUNTER 2020-06-03 13:58 | Outpatient (CLI) | payer OTHER | END 2020-06-03 13:59 | disposition short-term general hospital (02) | LOC: EMS 13:58 | PROVIDERS: ATTEND Surgery | DX: R25.2 Cramp and spasm (principal); M54.9 Dorsalgia, unspecified | CPT/HCPCS: A0425; A0429 ==

== ENCOUNTER 2020-06-09 15:01 | Outpatient (CLI) | payer OTHER ==
--- NOTE | 2020-06-09 16:39 | MRI Report ---
PROCEDURE: Cervical Spine W/O INDICATIONS: ABNORMAL FINDINGS TECHNIQUE: Noncontrast sagittal T1 spin echo and T2 fast spin echo, sagittal STIR, foraminal oblique sagittal T2 fast spin echo, and axial gradient echo or T2 fast spin echo through the cervical spine. COMPARISON: None. FINDINGS: Image quality: Excellent. Alignment and Curvature: Normal cervical spine vertebral body height and alignment. Bone Marrow: No suspicious focal marrow signal normality. Mild discogenic marrow edema at the opposin g C6-C7 endplates. Nonedematous and degenerative marrow signal change at a few remaining levels. No s uspicious focal marrow signal abnormality. Spinal Cord: No cord signal abnormality or syrinx. No intracerebral or tonsillar ectopia. Regional Soft Tissues: Prevertebral and paraspinous soft tissues unremarkable. C2-C3: No spinal canal or neural foraminal stenosis. C3-C4: Posterior discussed by complex flattens and indents the ventral thecal sac without mass effe ct upon the cord. Facet and uncovertebral hypertrophy contribute to moderate right and mild left neur al foraminal stenosis. C4-C5: Posterior discussed by complex flattens the ventral thecal sac without mass effect upon the c ord. Facet and uncovertebral hypertrophy contribute to moderate bilateral neural foraminal stenosis, slightly more pronounced on the left. C5-C6: Posterior disc osteophyte complex flattens the ventral thecal sac without mass effect upon th e cord. Facet and uncovertebral hypertrophy contribute to moderate left and mild right neural foramin al stenosis. C6-C7: No spinal canal stenosis. Facet and uncovertebral hypertrophy contribute to mild bilateral neural foraminal narrowing. C7-T1: No spinal canal or neural foraminal stenosis. IMPRESSION: Multilevel multifactorial degenerative changes. No spinal canal stenosis. Varying degrees of neural f oraminal narrowing up to moderate. Reviewed by: Ciro De La Torre MD on 06/09/2020 4:38 PM PDT Approved by: Ciro De La Torre MD on 06/09/2020 4:38 PM PDT Station ID: [id number]
--- NOTE | 2020-06-14 17:12 | MRI Report ---
PROCEDURE: Thoracic Spine W/O INDICATIONS: ABNORMAL FINDINGS TECHNIQUE: Noncontrast sagittal T1 spine echo and T2 fast spin echo, sagittal STIR, axial T1 and T2 fast spin ec ho through the thoracic spine. COMPARISON: None. FINDINGS: Image quality: Excellent. Alignment and Curvature: There is normal bony alignment. Bone Marrow: Marrow is of normal overall signal. No acute vertebral body compression fractures. Spinal Cord: Visualized spinal cord demonstrates mid thoracic intramedullary hyperintensity from helder roximately T5-T8. While it is similar in craniocaudal dimension, AP dimension has mildly decreased me asuring 4 mm compared to 6 mm on prior exam. Paraspinous Soft Tissues: No paravertebral masses. Miscellaneous: On axial images, central canal and foramina appear widely patent at all scanned level s. Multilevel disc desiccation is present throughout the thoracic spine. IMPRESSION: 1. Slightly less prominent appearance of intramedullary hyperintense signal most suggestive of syrinx . Reviewed by: Wendy Saleh MD on 06/14/2020 5:11 PM PDT Approved by: Wendy Saleh MD on 06/14/2020 5:11 PM PDT Station ID: [id number]
--- NOTE | 2020-06-14 19:18 | MRI Report ---
PROCEDURE: Lumbar Spine W/O INDICATIONS: ABNORMAL FINDINGS TECHNIQUE: Noncontrast sagittal T1 spin echo and T2 fast echo, sagittal STIR, axial T1 and T2 fast spin echo thr ough the lumbar spine. In cases with scoliosis, additional coronal T2 fast spin echo may be performe d. COMPARISON: Prior lumbar MRI 09/11/2007 Correlation is made with the accompanying thoracic spine MRI 06/09/2020. FINDINGS: Image quality: Diagnostic. Alignment and Curvature: There is minimal to mild retrolisthesis seen at L4-L5 and L5-S1. Bone Marrow: The bone marrow demonstrates diffuse heterogeneity. No focally suspicious bone marrow le sions are seen. No acute vertebral body compression fractures. Spinal Cord: Conus medullaris terminates at the T12-L1 level. Visualized cord demonstrates normal s ignal and size. Paraspinous Soft Tissues: No paravertebral masses. T12-L1: Mild to moderate loss of disc height and disc signal can be seen. This level is not included within the [id number] of the axial images. Mild disc bulge is seen. There is mild right-sided and moderate left-sided neuroforaminal narrowing seen. Likely mild central canal narrowing can be seen. These degenerative changes have progressed when compared to the prior examination. L1-L2: Moderate loss of disc height and signal are seen. Bridging anterior osteophytes are seen. Moderate disc bulge is seen, which is eccentric to the left. There is mild to moderate facet hypertro phy seen. There is moderate right-sided and moderate to severe left-sided neuroforaminal narrowing se en. Moderate central canal narrowing is seen. These degenerative changes have progressed when nela red to the prior examination. L2-L3: Mild to moderate loss of disc height and disc signal can be seen. Bridging anterior osteoph ytes are seen. Moderate disc bulge is seen, which is eccentric to the right. There is mild to modera te facet hypertrophy seen, right worse than left and moderate bilateral neuroforaminal narrowing is s een, right worse than left. Moderate central canal narrowing is seen. Compared to 2017, these degen erative changes are progressed. L3-L4: Mild loss of disc height and disc signal are seen. Moderate disc bulge is seen. Mild to mode rate facet hypertrophy is seen. There is at least moderate left-sided and moderate to severe right-si ded neuroforaminal narrowing seen. Compression is seen upon the exiting nerve roots. Moderate centr al canal narrowing is seen. These degenerative changes have progressed when compared to the prior e xamination. L4-L5: Mild to moderate loss of disc height and disc signal can be seen. There is at least moderate disc bulge seen, which is eccentric to the right side. There is a central disc protrusion seen. Mod erate facet hypertrophy is seen. Moderate to severe bilateral neuroforaminal narrowing is seen, wit h associated compression upon the exiting nerve roots. Moderate central canal narrowing is seen. Th shelly degenerative changes have progressed when compared to the prior examination. L5-S1: Moderate to severe loss of disc height and disc signal can be seen. Reactive marrow endplat e changes are seen, which are hyperintense on T1-weighted and T2-weighted imaging, without significan t increased STIR signal. These imaging findings are most consistent with fatty metaplasia (Modic type 2 change). Moderate disc bulge is seen, with a central disc protrusion. Mild to moderate facet hype rtrophy is seen. There is moderate to severe bilateral neuroforaminal narrowing seen. Compression is seen upon the exiting nerve roots. Moderate central canal narrowing is seen. Mild progression comp ared to 2007. IMPRESSION: Multiple levels of lumbar spine degenerative change are seen, which have progressed comp ared to 2007. The degenerative changes are most prominent inferiorly at L4-L5 and L5-S1. Numerous sites of moderate to severe neuroforaminal narrowing can be seen, with associated exiting ne rve root compression. Reviewed by: Tee Houston MD on 06/14/2020 6:17 PM TICO Approved by: Tee Houston MD on 06/14/2020 6:17 PM [id number] Station ID: [id number]
== END 2020-06-09 15:02 | disposition home or self-care (01) ==
LOC: DI 15:01
PROVIDERS: ATTEND Nurse Practitioner Family
DX: R93.89 Abnormal findings on diagnostic imaging of other specified body structures (principal); M50.31 Other cervical disc degeneration, high cervical region; M51.36 Other intervertebral disc degeneration, lumbar region; M48.061 Spinal stenosis, lumbar region without neurogenic claudication
CPT/HCPCS: 72141; 72146; 72148

== ENCOUNTER 2022-05-14 10:47 | Outpatient (CLI) | payer OTHER ==
--- NOTE | 2022-05-14 12:46 | XRAY Report ---
PROCEDURE: Hip w/Pelvis 2-3V LT INDICATIONS: PAIN OF LEFT HIP JOINT TECHNIQUE: AP pelvis with lateral view(s) of the left hip(s). COMPARISON: None. FINDINGS: Bones: Probable subcapital nondisplaced crack fracture of the left femoral neck. Pelvic ring appears intact. No suspicious bony lesions. Soft tissues: The visualized bowel gas pattern is normal. No suspicious soft tissue calcifications. IMPRESSION: There is a probable subcapital nondisplaced crack fracture of the left femoral neck. How ever, it is possible that the presence of osteophytes can give a similar appearance. Comment: Recommend CT Left hip for confirmation. Comment: This patient is an outpatient came in for routine imaging over the weekend. At the time of i nterpretation, I notified Dr. Rivera, of the emergency Department, on 05/14/2022 at 1142 hours [place] daylight time. Current plans are for the emergency department to contact the patient and discuss the findings and elucidate whether there is a history of recent trauma. Reviewed by: Kyrie Gonzales MD on 05/14/2022 11:45 AM TICO Approved by: Kyrie Gonzales MD on 05/14/2022 11:45 AM TICO Station ID: [id number]
== END 2022-05-14 10:48 | disposition home or self-care (01) ==
LOC: DI 10:47
PROVIDERS: ATTEND Internal Medicine
DX: M25.552 Pain in left hip (principal)

== ENCOUNTER 2022-05-14 14:03 | Emergency (ER) | payer OTHER ==
[2022-05-14 14:13] VITALS: BP 140/95
--- NOTE | 2022-05-14 14:18 | ED Physician Documentation ---
PD HPI LOWER EXT INJURY - Stated complaint Stated Complaint: XRAY RESULT ABNORMAL - Chief complaint Chief Complaint: Ext Problem - History obtained from History obtained from: Patient - Additional information Additional information: He has had left hip pain for about 2 months. He does not recall a specific injury although he feels like maybe he hurt it when he was stretching. He admits he has a lot of injuries, but does not necessarily recall them and just brushes them off. His primary care physician sent him for an x-ray today that was concerning for a nondisplaced subcapital fracture. I called him and initially he was going to have a work-up by his primary care physician, but his convinced him to present for evaluation. Review of Systems Constitutional: reports: Reviewed and negative Throat: reports: Reviewed and negative Cardiac: reports: Reviewed and negative PD PAST MEDICAL HISTORY - Past Medical History Cardiovascular: None Respiratory: None Neuro: None Musculoskeletal: Chronic back pain, Other Derm: Other - Past Surgical History Past Surgical History: Yes Ortho: Other - Present Medications Home Medications: Ambulatory Orders Medication Instructions Recorded Confirmed HYDROcod/ACETAM 5/325 [Pendroy 5/325] 2 tab PO Q4HR PRN #24 tab 05/29/20 Hydromorphone HCl [Dilaudid] 4 mg PO TID PRN #12 tablet 05/29/20 cephALEXin [Keflex] 500 mg PO QID #40 capsule 05/29/20 - Allergies Allergies/Adverse Reactions: Allergies Allergy/AdvReac Type Severity Reaction Status Date / Time No Known Drug Allergies Allergy Verified 05/14/22 14:13 - Social History Does the pt smoke?: No Smoking Status: Never smoker Does the pt drink ETOH?: No Does the pt have substance abuse?: No - Immunizations Immunizations are current?: No - POLST Patient has POLST: No POLST Status: Full Code PD ED PE NORMAL - Vitals Vital signs reviewed: Yes - General General: Alert and oriented X 3, No acute distress - Neck Neck: Supple, no meningeal sign, No bony TTP - Extremities Extremities: Other (Mild tenderness over the lateral left hip. He does have pain with external rotation and flexion. Most of the pain is on the outside of the hip as opposed to the inguinal ligament but he does have some inguinal pain 2.) - Neuro Neuro: Alert and oriented X 3, Normal speech Results - Vitals Vitals: Vital Signs - 24 hr 05/14/22 14:10 Temperature 36.7 C Heart Rate 75 Respiratory 16 Rate Blood Pressure 140/95 H O2 Saturation 97 Oxygen O2 Source Room air PD MEDICAL DECISION MAKING - ED course ED course: 76-year-old gentleman referred in after abnormal hip x-ray concerning for a fracture although there was no mechanism to suggest said fracture. Advanced imaging with CT was done and the abnormality is due to an osteophyte, there was no fracture. Departure - Departure Disposition: 01 Home, Self Care Clinical Impression: Hip osteoarthritis Qualifiers: Osteoarthritis type: primary Laterality: left Qualified Code(s): M16.12 - Unilateral primary osteoarthritis, left hip Condition: Good Record reviewed to determine appropriate education?: Yes Instructions: Hip Osteoarthritis Comments: As discussed although the x-ray was concerning for fracture, when we followed this with a CT you have what are called osteophytes in the hip. This may need eventual hip replacement or other intervention. You can talk with your primary care physician about this. Return for new or worsening symptoms Discharge Date/Time: 05/14/22 15:21
--- NOTE | 2022-05-14 15:06 | CT Report ---
PROCEDURE: LOWER EXTREMITY WO - LT INDICATIONS: hip pain, abn xr TECHNIQUE: Noncontrast 3-mm axial sections acquired from the distal tibial shaft to the talar dome, with coronal and sagittal reformats. For radiation dose reduction, the following was used: automated exposure c ontrol, adjustment of mA and/or kV according to patient size. COMPARISON: Plain films of the pelvis and left hip from earlier today. FINDINGS: Image quality: Excellent. Bones: There are are no fractures or dislocations noted. The abnormality, which had the appearance o f a subcapital linear lucency in the femoral neck on the plain films, corresponds to a degenerative o steophyte off of the lateral aspect of the posterior column of the acetabulum. It is not a fracture. There is mild to moderate degenerative arthritis of the hip. Soft tissues: Unremarkable Impression: No evidence acute subcapital femoral neck fracture. The abnormality on plain films is cau sed by an osteophyte off the acetabulum. There is mild to moderate degenerative arthritis. Above discussed with Ramy Rivera at the time of dictation. Reviewed by: Kyrie Gonzales MD on 05/14/2022 2:04 PM TICO Approved by: Kyrie Gonzales MD on 05/14/2022 2:04 PM TICO Station ID: [id number]
== END 2022-05-14 15:21 | disposition home or self-care (01) ==
LOC: ED 14:03
DX: M16.12 Unilateral primary osteoarthritis, left hip (principal)
CPT/HCPCS: 99283; 99284

== ENCOUNTER 2023-05-14 17:52 | Outpatient (CLI) | payer OTHER ==
--- NOTE | 2023-05-21 12:38 | XRAY Report ---
PROCEDURE: Hip w/Pelvis 2-3V LT INDICATIONS: PAIN OF LEFT HIP JOINT TECHNIQUE: AP pelvis with lateral view(s) of the left hip(s). COMPARISON: None. FINDINGS: Bones: No fractures or dislocations. No suspicious bony lesions. Moderate symmetric axial joint s pace narrowing with periarticular osteophyte formation. Degenerative disc and facet disease involves the lower lumbar spine. Soft tissues: No suspicious soft tissue calcifications or masses. IMPRESSION: Moderate symmetric hip joint degeneration. Reviewed by: OSMAN Allison on 05/15/2023 7:47 PM PDT Approved by: Khushi Chang MD on 05/15/2023 7:47 PM PDT Station ID: [id number]
== END 2023-05-14 17:53 | disposition home or self-care (01) ==
LOC: DI 17:52
PROVIDERS: ATTEND Registered Nurse
DX: M16.0 Bilateral primary osteoarthritis of hip (principal)